=== PATIENT | female | born 1965 | race Caucasian/White ===

== ENCOUNTER 2018-09-03 12:09 | Outpatient (REF) | payer BC, SELFPAY ==
[2018-09-03 13:22] LABS: TSH (W/Ref FT4) 1.59 uIU/mL (0.358-3.74)
== END 2018-09-03 12:29 ==
LOC: NCHCN 12:09
PROVIDERS: PCP Nurse Practitioner Family; Visit Provider Nurse Practitioner Family
DX: E03.9 Hypothyroidism, unspecified (principal)
CPT/HCPCS: 84443

== ENCOUNTER 2019-09-05 09:28 | Outpatient (REF) | payer BC, SELFPAY ==
[2019-09-05 13:38] LABS: HCT 38.7 % (36.0-46.0); HGB 12.6 g/dL (12.0-15.5); Mean Corp. HGB Concentration 32.6 g/dL (32.0-36.0); Mean Corpuscular Hemoglobin 26.1 pg (27.0-33.0); Mean Corpuscular Volume 80.1 fL (80-95); Mean Platelet Volume 10.4 fL (8.0-11.0); Platelet Count 285 x1000/uL (130-400); RBC 4.83 m/cumm (4.00-5.20); RBC Distribution Width 14.6 % (11.7-14.6); White Blood Cell Count 4.96 k/cumm (4.4-10.8)
[2019-09-05 14:09] LABS: ALT 28 U/L (14-59); AST 17 U/L (15-37); Albumin 3.8 g/dL (3.4-5.0); Alkaline Phosphatase 90 U/L (46-116); Anion Gap 9.8 mmol/L (3-11); BUN 12 mg/dL (7-18); Bilirubin, Total 0.6 mg/dL (0.2-1.0); CO2 27.2 mmol/L (21.0-32.0); CREATININE 0.72 mg/dL (0.55-1.02); Calcium 9.3 mg/dL (8.5-10.1); Calculated LDL 150 mg/dL (<100); Chloride 105 mmol/L (98-107); Cholesterol 222 mg/dL (<200); Glucose 94 mg/dL (74-106); HDL Cholesterol 39 mg/dL (40-60); Potassium 4.2 mmol/L (3.5-5.1); Sodium 142 mmol/L (136-145); TSH (W/Ref FT4) 0.46 uIU/mL (0.36-3.74); Triglyceride 168 mg/dL (<150)
== END 2019-09-05 09:48 ==
LOC: NCHCN 09:28
PROVIDERS: PCP Nurse Practitioner Family; Visit Provider Nurse Practitioner Family
DX: Z00.00 Encounter for general adult medical examination without abnormal findings (principal); D64.9 Anemia, unspecified
CPT/HCPCS: 80053; 80061; 85027; 84443

== ENCOUNTER 2019-12-19 02:04 | Outpatient (CLI) | payer BC, SELFPAY ==
--- NOTE | 2019-12-19 09:50 | DI.MAMMO_ITS ---
EXAM: MG MAMMO SCREENING CLINICAL HISTORY: SCREENING, Z12.39 TECHNIQUE: Bilateral full field digital CC and MLO mammographic images were obtained with 3D tomosyn thesis and utilizing computer aided detection (CAD). COMPARISON: Available for comparison. FINDINGS: Masses/Architectural Distortion: None seen. Microcalcifications: No suspicious pleomorphic-type are seen. Skin Thickening/Nipple Retraction: None. IMPRESSION: 1. No significant interval change with no specific features of malignancy noted. 2. Unless there is more urgent need, screening mammography is recommended, as per [employer] guidelines. BI-RADS Category 1 - Negative Breast Density - Category B - Scattered areas of fibroglandular density A negative radiographic report should not delay biopsy if a dominant or clinically suspicious mass is present. Up to ten percent of cancers are not identified on mammography. A negative report may reinforce clinical impression. Adenosis and dense breasts may obscure an underlying neoplasm. False positive reports average 6 to 10%. Patient will receive a letter notifying them of these results.
== END 2019-12-19 02:24 ==
PROVIDERS: PCP Nurse Practitioner Family; Visit Provider Nurse Practitioner Family
DX: Z12.31 Encounter for screening mammogram for malignant neoplasm of breast (principal)
CPT/HCPCS: 77063; 77067

== ENCOUNTER 2020-09-07 14:32 | Outpatient (REF) | payer BC, SELFPAY ==
[2020-09-07 14:14] LABS: HCT 36.7 % (36.0-46.0); MCH 27.6 pg (27.0-33.0); MCHC 32.7 % (32.0-36.0); MCV 84.6 fL (80-95); MPV 10.3 fL (8.0-11.0); Platelet Count 208 10^3/uL (130-400); RBC 4.34 10^6/uL (3.93-5.22); RDW 13.3 % (11.7-14.6); RDW-SD 41.3 fL; WBC 5.28 10^3/uL (4.4-10.8)
[2020-09-07 14:34] LABS: ALT 86 U/L (14-59); AST 31 U/L (15-37); Albumin 3.6 g/dL (3.4-5.0); Alkaline Phosphatase 108 U/L (46-116); Anion Gap 8.1 mmol/L (3-11); BUN 16 mg/dL (7-18); Bilirubin, Total 0.4 mg/dL (0.2-1.0); CO2 26.9 mmol/L (21.0-32.0); CREATININE 0.9 mg/dL (0.55-1.02); Calcium 9.1 mg/dL (8.5-10.1); Calculated LDL 130 mg/dL (<100); Chloride 105 mmol/L (98-107); Cholesterol 209 mg/dL (<200); Glucose 106 mg/dL (74-106); HDL Cholesterol 50 mg/dL (40-60); Potassium 3.8 mmol/L (3.5-5.1); Sodium 140 mmol/L (136-145); TSH (W/Ref FT4) 0.87 uIU/mL (0.36-3.74); Total Protein 6.7 g/dL (6.4-8.2); Triglyceride 147 mg/dL (<150)
[2020-09-08 10:11] LABS: Hepatitis C Ab w Rflx HCV PCR Negative (Negative)
[2020-09-08 10:16] LABS: HIV-1/2 Ag & Ab Screen Negative (Negative)
== END 2020-09-07 14:33 | disposition home or self-care (01) ==
LOC: NCHCN 14:32
PROVIDERS: PCP Nurse Practitioner Family; Visit Provider Nurse Practitioner Family
DX: D64.9 Anemia, unspecified (principal); E03.9 Hypothyroidism, unspecified; Z11.59 Encounter for screening for other viral diseases; Z11.4 Encounter for screening for human immunodeficiency virus [HIV]
CPT/HCPCS: 80053; 80061; 85027; 86803; 87389; 84443

== ENCOUNTER 2021-02-08 02:16 | Outpatient (CLI) | payer BC, SELFPAY ==
--- NOTE | 2021-02-08 | DI.MAMMO_ITS ---
Exam(s) MAMMO SCREENING EXAM: MAMMO SCREENING CLINICAL HISTORY: SCREENING, Z12.39. TECHNIQUE: Bilateral full field digital CC and MLO mammographic images were obtained with 3D tomosyn thesis and utilizing computer aided detection (CAD). COMPARISON: Prior mammograms dating back to 2011, the most recent being November 2019. FINDINGS: There are no new spiculated masses nor malignant appearing microcalcification groups. There is no significant architectural distortion nor skin thickening-retraction. IMPRESSION: No radiographic evidence of malignancy. BI-RADS Category 1 - Negative Breast Density - Category B - Scattered areas of fibroglandular density Breast density Category C or D implies that the patient has dense breast tissue. Dense breast tissue can make it harder to find cancer on a mammogram. Dense breast tissue is also associated with an incr eased risk of breast cancer. This information about the result of the mammogram report was provided to the patient to raise their awareness. Use this report when you speak with the patient about their risks for breast cancer, which includes their family history. At that time, you may recommend additional screening tests (Ultrasoun d or MRI) as these tests may add significant information. A negative radiographic report should not delay biopsy if a dominant or clinically suspicious mass is present. Up to ten percent of cancers are not identified on mammography. A negative report may reinforce clinical impression. Adenosis and dense breasts may obscure an underlying neoplasm. False positive reports average 6 to 10%. Patient will receive a letter notifying them of these results.
== END 2021-02-08 02:36 ==
PROVIDERS: PCP Nurse Practitioner Family; Visit Provider Nurse Practitioner Family
DX: Z12.31 Encounter for screening mammogram for malignant neoplasm of breast (principal); R92.8 Other abnormal and inconclusive findings on diagnostic imaging of breast
CPT/HCPCS: 77063; 77067

== ENCOUNTER 2021-11-09 18:17 | Outpatient (REF) | payer BC, SELFPAY ==
[2021-11-09 16:13] LABS: Hemoglobin A1C 5.9 % (<5.7)
[2021-11-09 16:33] LABS: ALT 33 U/L (14-59); AST 20 U/L (15-37); Albumin 3.8 g/dL (3.4-5.0); Alkaline Phosphatase 100 U/L (46-116); Anion Gap 9.3 mmol/L (3-11); BUN 12 mg/dL (7-18); Bilirubin, Total 0.6 mg/dL (0.2-1.0); CO2 25.7 mmol/L (21.0-32.0); CREATININE 0.7 mg/dL (0.55-1.02); Calculated LDL 148 mg/dL (<100); Chloride 105 mmol/L (98-107); Cholesterol 223 mg/dL (<200); Glucose 94 mg/dL (74-106); HDL Cholesterol 46 mg/dL (40-60); Potassium 4.3 mmol/L (3.5-5.1); Sodium 140 mmol/L (136-145); TSH 0.72 uIU/mL (0.36-3.74); Total Protein 6.8 g/dL (6.4-8.2); Triglyceride 146 mg/dL (<150)
== END 2021-11-09 18:18 | disposition home or self-care (01) ==
LOC: NCHCN 18:17
PROVIDERS: PCP Nurse Practitioner Family; Visit Provider Physician Assistant
DX: E03.9 Hypothyroidism, unspecified (principal); R73.03 Prediabetes; E78.5 Hyperlipidemia, unspecified
CPT/HCPCS: 80053; 80061; 83036; 84443

== ENCOUNTER → 2022-02-14 | Outpatient (CLI) | payer BC, SELFPAY ==
--- NOTE | 2022-02-14 | DI.MAMMO_ITS ---
Exam(s) MAMMO SCREENING EXAM: MAMMO SCREENING CLINICAL HISTORY: SCREENING FOR BREAST CA, Z12.39 TECHNIQUE: Mammograms were interpreted according to the usual protocol including computer analysis w IROCKE CAD system, tomosynthesis and C-view imaging. COMPARISON: 2011 through 2020 FINDINGS: The breasts are composed of mainly fatty density , Breast Density category A. No suspicious masses or suspicious microcalcifications are seen. No skin thickening or abnormal axillary lymph nodes are seen. There has been no significant change from prior exams. IMPRESSION: BI-RADS Category 1, Negative mammogram Yearly screening mammography is recommended. Breast Density - Category A, fatty density. A negative radiographic report should not delay biopsy if a dominant or clinically suspicious mass is present. Up to ten percent of cancers are not identified on mammography. A negative report may reinforce clinical impression. Adenosis and dense breasts may obscure an underlying neoplasm. False positive reports average 6 to 10%. Patient will receive a letter notifying them of these results.
--- OUTSIDE RECORDS SUMMARY | 2022-02-14 00:02 | XMS_ITS | Encounter Summary ---
:1965 Author Organization [facility] Address [address] [place] [address] Care Team Providers Name Role Phone Elsa Dai APRN Primary Care Provider Encounter Details Date Type Department Care Team Description 10/27/2015 Hospital Encounter Mammography at [facility] Dr Joe Temporary Encounter for [facility] screening mammogram Drive for malignant [place] [id number] Social History Tobacco Use Types Packs/Day Years Used Date Never Assessed Sex Assigned at Date Recorded Not on file documented as of this encounter Medications at Time of Discharge Medication Sig Dispensed Refills Start Date End Date levothyroxine (SYNTHROID) 88 Take 88 mcg by 0 mcg Tablet mouth daily. ascorbic acid (VITAMIN C) Take 250 mg by 0 250 mg Tablet mouth daily. documented as of this encounter Plan of Treatment Not on filedocumented as of this encounter Procedures Procedure Name Priority Date/Time Associated Diagnosis Comme nts MAMMO SCREENING CAD Routine 10/27/2015 7:50 AM Encounter for R esults for this AND VALERIE BILATERAL EDT screening mammogram pr ocedure are in for malignant the results neoplasm of breast section. documented in this encounter Results Mammo Digital Bilateral Screening With CAD and Tomosynthesis (10/27/2015 7:50 AM EDT) Anatomical Region Laterality Modality Breast Bilateral Mammography Specimen (Source) Anatomical Location Collection Method / Collectio n Time Received Time / Laterality Volume Narrative 10/27/2015 10:04 AM EDT BILATERAL MAMMOGRAPHY REASON FOR EXAM: Screening TECHNIQUE: CC and MLO views were obtaine d of each breast using standard 2-D mammography as well as 3-D tomosynth esis. Computer aided detection was used. This is compared with prior images . FINDINGS: There are scattered areas of f ibroglandular density. There are no suspicious microcalcifications, mark s, or areas of distortion. The pattern is stable. CONCLUSION: No mammographic evidence of malignancy. RECOMMENDATION: The [employer] and The Society of Breast Imaging recommend annual screenin g beginning at age 40 for the general female population. Screening adriel uld continue as long as a woman is in good health and is expected to live 1 0 more years or longer. All women should be familiar with the known benefi ts, limitations, and potential harms linked to breast cancer screening. They should also know how their breasts normally look and feel and repor t any breast changes to a health care provider right away. Some women - b ecause of their family history, a genetic tendency, or certain other facto rs - should be screened with MRIs along with mammograms. (The number of wo men who fall into this category is very small.) The patient and health care provider should discuss the patient history and decide if earlier sc reening and breast MRI are appropriate. A result letter has been sent to this brandon esteves by [facility]. BIRADS CATEGORY 1: NEGATIVE Dr Quiles [facility] MAMMO ORDERABLES documented in this encounter Visit Diagnoses Diagnosis Encounter for screening mammogram for ma lignant neoplasm of breast Other screening mammogram documented in this encounter Care Teams Caser Relationship Specialty Start Date End Date Elsa Dai APRN PCP - General Family Medicine 09/16/15 12/11/[address] [place] [place] [address] documented as of this encounter
--- OUTSIDE RECORDS SUMMARY | 2022-02-14 00:02 | XMS_ITS | Encounter Summary ---
:1965 Author Organization [place] [address] Care Team Providers Name Role Phone Michael Murdock Primary Care Provider Reason for Visit Consultation (Routine) - Authorized Specialty Diagnoses / Procedures Referred By Contact Refer red To Contact Dermatology Diagnoses Nevus, non-neoplastic Michael Murdock PA [facility] Dermatology [facility] [address] [place], [place] [address] [place] [address] Fax: Referral ID Status Reason Start Expiration Visits Visits Date Date Requested Authorized [id number] Authorized Consult, 11/12/2021 11/12/2022 6 6 Test & Treat PCP Updated and/or Approved Encounter Details Date Type Department Care Team Description 02/07/2022 Office Visit Dermatology at [facility] Le ntigines; Road MD Multiple benign nevi; [address] [facility] Actinic keratosis; [place] [address] [address] Stafford angiodafne; [phone] [facility] Blue nevus; RD-DERMATOLOGY Skin tags, multiple acquired; [place], [place] [address] Neoplasm of uncertain behavior Social History Tobacco Use Types Packs/Day Years Used Date Never Smoker Alcohol Habits Answer Date Recorded How often do you have a drink containing alcohol? Not asked How many drinks containing alcohol do you have on a typical Not asked day when you are drinking? How often do you have six or more drinks on one occasion? No t asked Comment: 1-2/yr 12/03/2015 Sex Assigned at Date Recorded Not on file documented as of this encounter Progress Notes Jumana Pro MD - 02/07/2022 4:00 PM EDT Images from the original note were not included. DEPARTMENT OF DERMATOLOGY Medical Dermatology Clinic Provider: Jumana Pro MD Patient's preferred name Sachi Preferred contact method for results [x]Phone []myD-H [x]Letter Detailed phone message OK? Y Are there any other people with whom we may discuss your care? Past Medical History Date, location, treatment Melanoma N Dysplastic nevi N SCC N BCC N AKs N UV Exposure & Protection N Other relevant past medical history N Family History Details Melanoma N NMSC N Other relevant family history N Social History Occupation: Hobbies: Other: PRE-PROCEDURE SCREENING Details Allergy to lidocaine, epinephrine, Dermabond, chlorhexidine, or adhesives N Bleeding disorder or blood thinners N Pacemaker, defibrillator, deep brain stimulator, cochlear implant N History of Present Illness: Sachi Ramirez is a 56 y.o. Patient is new and self-referred to the clinic for a FSE with no specific concerns. Medications: Reviewed in eD-H Allergies: Reviewed in eD-H Skin Examination: Full skin examination: Patient asked to undress to their comfort level. Verbalized that the provider???s preference is that the patient remove all clothing and that the provider will not examine areas patient elects to keep covered. Patient elects to keep underwear on and have the following examined: s calp, hair, face, ears, neck, chest, axillae, abdomen, back, and upper and lower extremities. Genitalia and buttocks were not examined. Assessment/Plan #. Nevus r/o Atypia - on the left shoulder, there is a 4 mm brown papule with asymmetric pigment pattern and dark globules centrally.(Figure 1). - Recommended a skin biopsy to confirm/clarify the nature of the skin lesion. After discussion of potential risks (scarring, bleeding, infection) and recurrence, patient agreed to proceed. - Patient denies known allergies to lidocaine and epinephrine. Procedure: Skin shave biopsy Location: left shoulder Time of procedure: 4:22 PM Discussed indications for procedure and expectations including risks and benefits. Verbal consent obtained. Time out performed. Skin prepped with alcohol. Local anesthesia with 1% xylocaine, 1/100,000 epinephrine. A sample of the lesion was removed by shave technique to the level of the dermis and subm itted to Pathology. Hemostasis obtained (electrocautery). There were no complications; patient tolerated the procedure well. Wound dressed. Post- procedure expectations, wound care and activity restrictions reviewed. - Follow-up based on pathology results. #. Lentigines - Scattered light-brown, evenly pigmented, well-demarcated macules on sun-exposed areas of the trunk and extremities. - No worrisome pigmented lesions. Discussed benign nature of lesions and provided reassurance. Will continue to monitor. #. Seborrheic Keratoses - Stuck on, waxy papules on the trunk and extremities. - Discussed benign nature of lesions and provided reassurance. No treatment necessary at this time. #. Stafford Angiomas - Multiple bright red, well-demarcated papules on the trunk and extremities. - Discussed benign nature of lesions and provided reassurance. No treatment necessary at this time. #. Nevi -scattered brown macules on the back, chest,face and feet w/o concerning findings on dermoscopy. -pt reassured -advised the pt to monitor nevi monthly and if they are growing, changing color, or new lesions appear pt should call back to be seen before their next FBSE. #. Blue Nevus - 2 mm irregular blue black macule on the right episcopalian. - Discussed benign nature of lesion and provided reassurance. Will continue to monitor. #. Actinic Keratosis - Ill-defined gritty papule on the left malar cheek x 1 - Explained premalignant potential of these lesions. - Discussed treatment with cryotherapy. Patient elects to proceed with cryotherapy today. - Instructed patient to return to clinic for re-evaluation if lesion(s) does not resolve as expectedwith this treatment. Procedure: Destruction of lesion(s) with cryotherapy (LN2). Location(s): As noted above. Number: 1 Discussed procedure and expectations, including risks and benefits. Verbal consent obtained. Treatedwith LN2. There were no complications; Patient tolerated the procedure well. Post-procedure expectations and wound care reviewed. #. Skin Tags - Sessile, flesh-colored papules around the neck. - Discussed benign nature of lesions and provided reassurance. No treatment necessary at this time. Figure 1 Photo(s) taken and charted with patient's verbal consent. Other: ??? Sun protection discussed (protective clothing and SPF30+ broad-spectrum sunscreen) RTC: Pending pathology, otherwise 1 year for FSE. [x]Note routed to alumni secretary []Recall placed in scheduling system []Appointment scheduled at checkout Scribe attestation: Lillie Godfrey Deann has performed the documentation for this encounter in the presence of and acting as a scribe for Jumana Pro MD. I performed the above scribed service and agree with the accuracy of the documentation in this encounter. Reviewed and signed by: Jumana Pro MD Dermatology [facility] Patient seen and evaluated with staff clinical product manager: Juan C Siddiqui MD Dermatology [facility] Juan C Siddiqui MD - 02/07/2022 4:00 PM EDT I directly supervised Dr. Pro in the care of this patient. I saw and evaluated this patient with Dr. Pro. She presented the history and physical exam details to me, then we saw the patient together and I confirmed these findings. I agree with details as written. My physical examination confirms her findings. The assessment and plan were formulated in discussion with me at the time of visit and I agree with them as documented. Juan C Siddiqui MD FAAD Staff Physician Department of Dermatology documented in this encounter Plan of Treatment Not on filedocumented as of this encounter Procedures Procedure Name Priority Date/Time Associated Diagnosis Comme nts SPECIMEN TO Routine 02/07/2022 4:59 PM Neoplasm of Results f or this PATHOLOGY EDT uncertain behavior procedure are in the results section. SURGICAL PATHOLOGY Routine 02/07/2022 4:23 PM Res ults for this REPORT EDT procedure are i n the results section. documented in this encounter Results Specimen to Pathology (02/07/2022 4:59 PM EDT) Specimen Anatomical Collection Method Collection Time Receive d Time (Source) Location / / Volume Laterality AP Specimen 02/07/2022 4:59 PM 2 4:59 EDT PM EDT Narrative [facility] - 02/07/2022 4:59 PM EDT Specimen requisition ordered. ??Separate Pathology report to follow Juan C Siddiqui MD PATHOLOGY/CYTOLOGY ORDERABLE S Performing Organization Address City/State/[place] [address] Surgical Pathology Report (02/07/2022 4:23 PM EDT) Component Value Ref Test Analysis Performed At [facility] Range Method Time Signature Surgical [id number] ? Location: [facility] The signing pathologist has (i) examined the relevant preparation(s) for the [facility] specimen(s) and (ii) rendered or confirmed the diagnosis(es) . HOSPITAL LABORATORY . 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 of Pathology, [place], [place] SPECIMEN(S) SUBMITTED A - left shoulder, skin shave biopsy (1) CLINICAL INFORMATION Nevus R/O atypia-4 mm Brown papule with asymmetric pigment pattern and dark globules centrally. SPECIMEN PROCESSING A - Labeled/Fixative: Patient demographics, formalin. Quantity/Size: ??Single, 0.9 x 0.8 x 0.2 cm. Tissue Description: Shave of slightly domed barakat skin with a central 0.4 x 0.3 cm brown-dark brown raised lesion. Sections/Processing: Inked, quadrisected and entirely submitted in 2 cassettes as follows: ?A1: ??Tips ?A2: ??Body ??mnd Specimen (Source) Anatomical Collection Method Collection Time Re ceived Time Location / / Volume Laterality 02/07/2022 4:23 PM EDT Jumana Pro MD PATHOLOGY/CYTOLOGY ORDERABLE S Performing Organization Address City/State/[place] [address] documented in this encounter Visit Diagnoses Diagnosis Lentigines Other dyschromia Multiple benign nevi Benign neoplasm of skin, site unspecifie d Actinic keratosis Stafford angioma Nevus, non-neoplastic Blue nevus Skin tags, multiple acquired Neoplasm of uncertain behavior Neoplasm of uncertain behavior, site uns pecified documented in this encounter Care Teams Crown Pouncer Relationship Specialty Start Date End Date Michael Murdock PA PCP - General Internal Medicine 11/12/21 [address] [place] [address] documented as of this encounter
--- OUTSIDE RECORDS SUMMARY | 2022-02-14 00:02 | XMS_ITS | Encounter Summary ---
:1965 Author Organization [facility] [place] [address] Care Team Providers Name Role Phone Elsa Dai JUAN RAMON Primary Care Provider Reason for Visit Reason Comments Establish Care Contraception Encounter Details Date Type Department Care Team Description 02/08/2016 Office Visit Obstetrics and Irais Valles, Oswald sinha; Gynecology at [facility] SALES NEGOTIATOR General counselling and advice on contra ception [facility] [address] [place] [facility] [address] [place] [address] [phone] (Wo rk) Social History Tobacco Use Types Packs/Day Years [...] on file documented as of this encounter Last Filed Vital Signs Vital Sign Reading Time Taken Comments Blood Pressure 120/70 02/08/2016 7:08 AM EDT Pulse 72 02/08/2016 7:08 AM EDT Temperature 36.7 ??C (98 ??F) 02/08/2016 7:08 AM EDT Respiratory Rate - - Oxygen Saturation 99% 02/08/2016 7:08 AM EDT Inhaled Oxygen Concentration - - Weight 76.2 kg (168 lb) 02/08/2016 7:08 AM EDT Height 153.7 cm (5' 0.5) 02/08/2016 7:08 AM EDT Body Mass Index 32.27 02/08/2016 7:08 AM EDT documented in this encounter Progress Notes Irais Valles, SALES NEGOTIATOR - 02/08/2016 7:32 AM EDT Patient Active Problem List Diagnosis Code ??? hypothyroid N95.1 HPI: Sachi is a very pleasant 50 year old P1 who comes to clinic today to discuss Mirena IUD. She is wondering if she should have replaced or not. It was inserted, she thinks in [id number], but is not sure. She is now in a new relationship and wants to avoid . She had SEALS ENGRAVER exam in Aug that included a pap smear and TSH evaluation with her PCP. EXTRUDING MACHINE OPERATOR HX: ?? Menarche age 12, lifelong regular menses until Mirena was inserted ?? mirena inserted for heavy flow ?? Last pap Aug 2015, no hx of abnormals ?? Sexually active ?? Having vasomotor signs and symptoms ?? 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 C/S delivery of son who is now 21, uncomplicated Past Surgical History Procedure Laterality Date ??? Breast reduction surgery Bilateral 2009 ??? Pro colonoscopy, diagnostic N/A 12/03/2015 COLONOSCOPY, DIAGNOSTIC performed by Rafita Hogan MD at [facility] END[facility]COPY Family History Problem Relation Age of Onset ??? Lymphoma Mother ??? Diabetes Father ??? Heart Disease Father ??? Diabetes Paternal Grandmother ??? Breast Cancer Neg Hx SOCIAL : Nonsmoker, [place] [employer] [place] [employer]. Son lives with her parts specialist when home from college. Family History Problem Relation Age of Onset ??? Lymphoma Mother ??? Diabetes Father ??? Heart Disease Father ??? Diabetes Paternal Grandmother ??? Breast Cancer Neg Hx Allergies Allergen Reactions ??? Cis Free Text Allergy medicine for labor?. CIS - had to cut dose in half. ??? Cis Free Text Allergy spinal/epidural. CIS - bad reaction was given general anesth. Current Outpatient Prescriptions on File Prior to Visit Medication Sig Dispense Refill ??? levothyroxine (SYNTHROID) 88 mcg Tablet Take 88 mcg by mouth daily. ??? ascorbic acid (VITAMIN C) 250 mg Tablet Take 250 mg by mouth daily. No current facility-administered medications on file prior to visit. O: . Vitals: 02/08/16 0708 BP: 120/70 Pulse: 72 Temp: 36.7 ??C (98 ??F) TempSrc: Oral SpO2: 99% Weight: 76.2 kg (168 lb) Height: 153.7 cm (5' 0.5) A/P I had a 20 minute visit with Sachi all in face to face discussion. She would not like to have Mirena reinserted if possible. She is unsure of dating of Mirena but thinks it was inserted in 2010 orso. Discussed chances for at 50.5 years is <1%. Discussed that vasomotor s/s that she has been having for a couple of years are indicative of perimenopause. At end of discussion a decisionwas made to proceed with FSH evaluation to assess menopausal status. Discussed that in [place] Mirena isFDA approved for 5 years. In [place] for 7, she could elect to keep current Mirena in place for 7 years knowing that its effectiveness for contraception is listed as 5 years in the [place]. She is going to call her SEALS ENGRAVER office in [facility] to find out when Mirena was inserted and then let me know. To 3L forFSH level. documented in this encounter Plan of Treatment Not on filedocumented as of this encounter Procedures Procedure Name Priority Date/Time Associated Diagnosis Comme nts FOLLICLE STIMULATING Routine 02/08/2016 7:34 AM Perimenopause Results for this HORMONE EDT procedure are i n the results section. documented in this encounter Results Follicle Stimulating Hormone (02/08/2016 7:34 AM EDT) athologist Signature FSH 96.7 mlU/ML [facility] Comment: Reference Ranges: Females: Follicular: ? 3.5-12.5 mIU/mL Ovulation: ?4.7-21.5 mIU/mL Luteal: ? 1.7-7.7 mIU/mL Postmenopausal: 25.8-134.8 mIU/mL Specimen Anatomical Collection Method Collection Time Receive d Time (Source) Location / / Volume Laterality Blood specimen 02/08/2016 7:34 AM 016 7:41 (specimen) EDT AM EDT Resulting Agency Comment Spec In Lab Ros Medina MD CHEMISTRY ORDERABLES Performing Organization Address City/State/Z[place] [address] documented in this encounter Visit Diagnoses Diagnosis Perimenopause Symptomatic menopausal or female climact binta states General counselling and advice on contra ception Other general counseling and advice for contraceptive management documented in this encounter Care Teams Gym Manager Relationship Specialty Start Date End Date Elsa Dai APRN PCP - General Family Medicine 09/16/15 12/11/16 [address] [place] [address] documented as of this encounter
--- OUTSIDE RECORDS SUMMARY | 2022-02-14 00:02 | XMS_ITS | Encounter Summary ---
:1965 [place] [address] Care Team Providers Name Role Phone Natacha Wu Juan David DELATORRE Primary Care Provider Encounter Details Date Type Department Care Team Description 12/12/2016 Laboratory Appointment Lab [address] [place] [address] Social History Tobacco Use Types Packs/Day Years [...] on file documented as of this encounter Plan of Treatment Not on filedocumented as of this encounter Procedures Procedure Name Priority Date/Time Associated Diagnosis Comme nts TSH Routine 12/12/2016 7:58 AM Results f or this EDT procedure are i n the results section. LIPID PANEL (REFLEX Routine 12/12/2016 7:58 AM Re sults for this DIRECT LDL) EDT procedure are i n the results section. BASIC METABOLIC Routine 12/12/2016 7:58 AM Result s for this PANEL (NON-FASTING) EDT procedur e are in the results section. documented in this encounter Results Lipid Panel (12/12/2016 7:58 AM EDT) [facility] Method Time Signature Chol, Total 219 <=239 TESS mg/dL [facility] Triglycerides 114 <=199 TESS mg/dL [facility] HDL 50 >=40 TESS mg/dL [facility] LDL Cholesterol 146 <=190 TESS mg/dL [facility] Chol/HDL Ratio 4.4 ratio [facility] Lipid See Note TESS Interpretation [facility] Comment: Lipid management should be guided by a p atient? s ASCVD risk, goals and preferences. ACC/AHA Guidelines recommend high intens ity statin if clinical ASCVD or LDL greater than or equal to 190 mg/dL. [email or web address] Adults aged 40-75 with LDL 70-189 mg/dL should have their 10 year ASCVD risk estimated with the ACC/AHA ASCVD risk es timator http://tools.acc.org/WWBRY-Ygsk-Rvtkbiwo r/ Statin should be discussed if risk great er than or equal to 7.5% in non-diabetics. With diabetes, moderate i ntensity statin is recommended if risk less than 7.5%, high intensity if risk g reater than or equal to 7.5%. Annual lipid monitoring on statins is no t necessary. Evaluate secondary causes of Triglycerid es greater than 500 mg/dL or LDL greater than 190 mg/dL: See table 6 of A CC/AHA Guideline. Lifestyle modification is a critical com ponent of ASCVD risk reduction. Specimen Anatomical Collection Method Collection Time Receive d Time (Source) Location / / Volume Laterality Blood specimen Venous Draw / 12/12/2016 7:58 AM 2016 8:06 (specimen) Unknown EDT AM EDT Resulting Agency Comment Spec In Lab Temporary Laboratory CHEMISTRY ORDERABLES Performing Organization Address City/State/ZIP [place] [address] TSH (12/12/2016 7:58 AM EDT) athologist Signature TSH 1.46 0.27 - 4.20 [facility] m[facility] Specimen Anatomical Collection Method Collection Time Receive d Time (Source) Location / / Volume Laterality Blood specimen Venous Draw / 12/12/2016 7:58 AM 2016 8:06 (specimen) Unknown EDT AM EDT Resulting Agency Comment Spec In Lab Dr Quiles Laboratory CHEMISTRY ORDERABLES Performing Organization Address City/State/ZIP [place] [address] Basic Metabolic Panel (non-fasting) (12/12/2016 7:58 AM EDT) athologist Signature Glucose Lvl 101 65 - 199 [facility] mg/dL [facility] Comment: Diabetes: >=200 mg/dL plus symp toms BUN 14 8 - 18 mg/dL [facility] Creatinine 0.93 0.70 - 1.20 mg/dL [facility] Comment: Please note that the pediatric reference intervals supplied above were not validated at [facility]. Results from pediatri c patients should be interpreted in conjunction to the patient's age, height and muscle mass. Sodium 139 135 - 145 mmol/L [facility] Potassium 4.0 3.5 - 5.0 mmol/L [facility] Comment: Please note: ??Patients with WBC >100,00 0 may have falsely elevated Potassium levels. ??For accurate Potassium quantif ication in these patients send serum separator tube (gold top) for subsequent determinations. ??Contact the Clinical Chemistry Laboratory if there are any qu estions. Chloride 102 98 - 107 mmol/L [facility] CO2 25 22 - 31 mmol/L [facility] Anion Gap 12 5 - 15 mmol/L [facility] Calcium 9.4 8.5 - 10.5 mg/dL [facility] Estimated GFR >60 >=60 [facility] Comment: This estimated GFR (eGFR) value was calc ulated using the MDRD equation which has been validated on patients between t he ages of 18 and 70. The MDRD should not be used to assess kidney function in patients < 18 years of age or in patients with extremes of body mass, or in patients with acute kidney failure. This value should be multiplied by 1.2 f or patients. For further information please copy and past e the following links into your internet browser. http://Toothpick/nkdep http://Toothpick/DHMCnkf Specimen Anatomical Collection Method Collection Time Receive d Time (Source) Location / / Volume Laterality Blood specimen Venous Draw / 12/12/2016 7:58 AM 2016 8:06 (specimen) Unknown EDT AM EDT Resulting Agency Comment Spec In Lab Dr Temporary Laboratory CHEMISTRY ORDERABLES Performing Organization Address City/State/[place] [address] documented in this encounter Visit Diagnoses Not on filedocumented in this encounter Care Teams Battery Plate Remover Relationship Specialty Start Date End Date Natacha Wu APRN PCP - General Family Medicine 12/12/16 02/27/19 documented as of this encounter
--- OUTSIDE RECORDS SUMMARY | 2022-02-14 00:02 | XMS_ITS | Encounter Summary ---
:1965 Author Organization [facility] [place] [address] Care Team Providers Name Role Phone Mirella Lawrence APRN Primary Care Provider [phone] Encounter Details Date Type Department Care Team Description 07/02/2013 Hospital Encounter Radiology Library at [facility] Rg, [place] [address] Social History Tobacco Use Types Packs/Day Years Used Date Never Assessed Sex Assigned at Date Recorded Not on file documented as of this encounter Plan of Treatment Not on filedocumented as of this encounter Procedures Procedure Name Priority Date/Time Associated Diagnosis Comme nts FILM LIBRARY Routine 07/02/2013 12:00 AM Pain Results for this STORAGE ONLY MAMMO EST procedure are in the results section. documented in this encounter Results Film Library- Storage only Mammo (07/02/2013 12:00 AM EST) Specimen (Source) Anatomical Location Collection Method / Collectio n Time Received Time / Laterality Volume Narrative [facility] - 09/25/2015 6:14 AM EST See PACS for result report. Dr Kb Diaz IMG FILM LIBRARY ORDERABLES Performing Organization Address City/State/ZIP Code Phon e Number [place], [place] documented in this encounter Visit Diagnoses Diagnosis Pain Generalized pain documented in this encounter Care Teams Commercial Project Manager Relationship Specialty Start Date End Date Mirella Lawrence APRN PCP - General 06/22/10 09/14/15 [address] [place] [address] documented as of this encounter
--- OUTSIDE RECORDS SUMMARY | 2022-02-14 00:02 | XMS_ITS | Clinical Summary ---
:1965 Author Organization [facility] [address] Care Team Providers Name Role Phone Michael Murdock Primary Care Provider Allergies Active Allergy Reactions Severity Noted Date Comments Cis Free Text Allergy medici ne for labor?. CIS - had to cut do se in half. Cis Free Text Allergy spinal /epidural. CIS - bad reaction was gi [facility]. Medications Medication Sig Dispensed Refills Start Date End Date Status levothyroxine Take 88 mcg by 0 A ctive (SYNTHROID) 88 mcg mouth daily. Tablet ascorbic acid (VITAMIN Take 250 mg by 0 Active C) 250 mg Tablet mouth daily. Active Problems Problem Noted Date hypothyroid 02/08/2016 Encounters Date Type Specialty Care Team Description 02/07/2022 Office Visit Dermatology Jumana Pro MD Lentigin es; Multiple benign nevi; Actinic keratos is; Stafford angioma; Blue nevus; Skin tags, mult iple acquired; [facility] of [facility] ertain behavior from Last 3 Months Family History Medical History Relation Comments Diabetes Father Heart Disease Father Lymphoma Mother Diabetes Paternal Grandmother Breast Cancer Neg Hx Relation Status Comments Father Mother Paternal Grandmother Social History Tobacco Use Types Packs/Day Years [...] Assigned at Date Recorded Not on file Last Filed Vital Signs Vital Sign Reading Time Taken Comments Blood Pressure 126/77 06/01/2016 7:20 AM EDT Pulse 76 06/01/2016 7:20 AM EDT Temperature 36.6 ??C (97.8 ??F) 06/01/2016 7:20 AM EDT Respiratory Rate 20 06/01/2016 7:20 AM EDT Oxygen Saturation 94% 06/01/2016 7:20 AM EDT Inhaled Oxygen Concentration - - Weight 74.8 kg (165 lb) 06/01/2016 7:20 AM EDT Height 153.7 cm (5' 0.5) 06/01/2016 7:20 AM EDT Body Mass Index 31.69 06/01/2016 7:20 AM EDT Plan of Treatment Health Maintenance Due Date Last Done Comments Covid-19 Vaccine (#1) 1970 HIV screen 1983 Hepatitis C Screening 1983 Tdap adult 1984 Tetanus vaccine 1984 HPV test 1995 PAP Smear 1995 Breast Cancer Share Decision Needed 2005 Zoster vaccine (1 of 2) 2015 Breast Cancer screening 10/26/2017 10/27/2015 Advance Directive 2020 Influenza (Flu) vaccine (1 of 1 - 03/31/2022 Influenza standard series) Colonoscopy 12/02/2025 12/03/2015, 12/03/2015 Procedures Procedure Name Priority Date/Time Associated Diagnosis Comme nts SPECIMEN TO Routine 02/07/2022 4:59 PM Neoplasm of Results f or this PATHOLOGY EDT uncertain behavior procedure are in the results section. SURGICAL PATHOLOGY Routine 02/07/2022 4:23 PM Res ults for this REPORT EDT procedure are i n the results section. from Last 3 Months Results Specimen to Pathology (02/07/2022 4:59 PM EDT) Specimen Anatomical Collection Method Collection Time Receive d Time (Source) Location / / Volume Laterality AP Specimen 02/07/2022 4:59 PM 4:59 EDT PM EDT Narrative [facility] - 02/07/2022 4:59 PM EDT Specimen requisition ordered. ??Separate Pathology report to follow Juan C Siddiqui MD PATHOLOGY/CYTOLOGY ORDERABLE S Performing Organization Address City/State/[place] [address] Surgical Pathology Report (02/07/2022 4:23 PM EDT) Component Value Ref Test Analysis Performed At [facility] Range Method Time Signature Surgical [id number] ? Location: [facility] Report The signing pathologist has (i) examined the relevant preparation(s) for the [facility] specimen(s) and (ii) rendered or confirmed the diagnosis(es) . HOSPITAL LABORATORY . 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 of Pathology, [place], [place] SPECIMEN(S) SUBMITTED A - left shoulder, [...] MD PATHOLOGY/CYTOLOGY ORDERABLE S Performing Organization Address City/[facility]/[place] [address] from Last 3 Months Insurance Payer Benefit Plan / Subscriber ID Effective Dates Phone Addre ss Type Group [employer] [place] [id number] 2021-Present [address] [place] [address] (Work) Care Teams Sandwich Wrapper Relationship Specialty Start Date End Date Michael Murdock PA PCP - General Internal Medicine 11/12/21 [address] [place], [place] [id number]
--- OUTSIDE RECORDS SUMMARY | 2022-02-14 00:02 | XMS_ITS | Encounter Summary ---
:1965 Author Organization [facility] [place] [address] Care Team Providers Name Role Phone Mirella Lawrence APRN Primary Care Provider [phone] Encounter Details Date Type Department Care Team Description 05/31/2011 Hospital Encounter Radiology Library at [facility] [place] [address] Social History Tobacco Use Types Packs/Day Years Used Date Never Assessed Sex Assigned at Date Recorded Not on file documented as of this encounter Plan of Treatment Not on filedocumented as of this encounter Procedures Procedure Name Priority Date/Time Associated Diagnosis Comme nts FILM LIBRARY Routine 05/31/2011 12:00 AM Pain Results for this STORAGE ONLY MAMMO EDT procedure are in the results section. documented in this encounter Results Film Library- Storage only Mammo (05/31/2011 12:00 AM EDT) Specimen (Source) Anatomical Location Collection Method / Collectio n Time Received Time / Laterality Volume Narrative [facility] - 09/25/2015 6:25 AM EST See PACS for result report. Dr Kb Diaz IMG FILM LIBRARY ORDERABLES Performing Organization Address City/State/ZIP Code Phon e Number [place], [place] documented in this encounter Visit Diagnoses Diagnosis Pain Generalized pain documented in this encounter Care Teams Group Work Program Aide Relationship Specialty Start Date End Date Mirella Lawrence APRN PCP - General 06/22/10 09/14/15 [address] [place] [address] documented as of this encounter
--- OUTSIDE RECORDS SUMMARY | 2022-02-14 00:02 | XMS_ITS | Encounter Summary ---
:1965 Author Organization [facility] [place] [address] Care Team Providers Name Role Phone Elsa Dai JUAN RAMON Primary Care Provider Reason for Visit Reason Comments Follow-up Encounter Details Date Type Department Care Team Description 06/01/2016 Office Visit Obstetrics and Irais Valles Encount er for IUD Gynecology at [facility] CARBONATION TESTER removal [facility] [address] [place], [place] VASCULAR SURGERY [address] [place] [address] [phone] (Wo rk) Social History Tobacco Use Types [...] Mass Index 31.69 06/01/2016 7:20 AM EDT documented in this encounter Progress Notes Miryam Valleszachristin Chacko, CARBONATION TESTER - 06/01/2016 7:30 AM EDT Patient Active Problem List Diagnosis Code ??? hypothyroid N95.1 HPI: Sachi is a very pleasant 50 year old who comes to clinic for Mirena IUD removal. I saw her in January for question of reinsertion of Mirena as her Mirena was now 5 years old. Her FSH was 96 which michelle menopausal value. CERTIFIED HISTOLOGIC TECHNICIAN HX: ?? Menarche age 12, lifelong regular menses until Mirena was inserted ?? mirena inserted for heavy flow ?? Last pap Aug 2015, no hx of abnormals ?? Sexually active ?? Having vasomotor signs and symptoms ?? 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 C/S delivery of son who is now 21, uncomplicated Allergies Allergen Reactions ??? Cis Free Text [...] medications on file prior to visit. O: Vitals: 06/01/16 0720 BP: 126/77 Pulse: 76 Resp: 20 Temp: 36.6 ??C (97.8 ??F) TempSrc: Oral SpO2: 94% Weight: 74.8 kg (165 lb) Height: 153.7 cm (5' 0.5) CAMPGROUND HAND: external genitalia architecturally normal, vagina moist, cervix smooth, IUD string grasped withforceps and removed easily and was intact. A/P IUD removal 50 year old female with FSH of 96. Discussed she may have spotting after removal. Discussed again that FSH of 96 is menopausal value, to call with further vaginal bleeding. ?? documented in this encounter Plan of Treatment Not on filedocumented as of this encounter Visit Diagnoses Diagnosis Encounter for IUD removal Encounter for removal of intrauterine co ntraceptive device documented in this encounter Care Teams Tire Man Relationship Specialty Start Date End Date Elsa Dai APRN PCP - General Family Medicine 09/16/15 12/11/16 [address] [place] [address] documented as of this encounter
--- OUTSIDE RECORDS SUMMARY | 2022-02-14 00:02 | XMS_ITS | Encounter Summary ---
:1965 Author Organization [facility] [place] [address] Care Team Providers Name Role Phone Michael Murdock Primary Care Provider Reason for Referral Consultation (Routine) - Authorized Specialty Diagnoses / Procedures Referred By Contact Refer red To Contact Dermatology Diagnoses Nevus, non-neoplastic Michael Murdock PA Psychiatric Dermatology [address] [place], [place] [address] [place] [phone] Fax: Referral ID Status Reason Start Expiration Visits Visits Date Date Requested Authorized [id number] Authorized Consult, 11/12/2021 11/12/2022 6 6 Test & Treat PCP Updated and/or Approved Encounter Details Date Type Department Care Team Description 11/12/2021 Transcribe Orders eDH Incoming Evangelist Murdock, Referrals ARASH Rodriguez non-neoplastic [phone] [address] [place] [address] Social History Tobacco Use Types Packs/Day Years [...] as of this encounter Plan of Treatment Scheduled Referrals Name Type Priority Associated Order Schedule Diagnoses Referral to Outpatient Referral Routine Nevus, Ordered: Dermatology non-neoplastic 11/12/2021 documented as of this encounter Visit Diagnoses Diagnosis Nevus, non-neoplastic documented in this encounter Care Teams Driller Operator Relationship Specialty Start Date End Date Michael Murdock PA PCP - General Internal Medicine 11/12/21 [address] [place] [address] documented as of this encounter
--- OUTSIDE RECORDS SUMMARY | 2022-02-14 00:02 | XMS_ITS | Encounter Summary ---
:1965 [place] [address] Care Team Providers Name Role Phone Unavailable Primary Care Provider Unavailable Encounter Details Date Type Department Care Team Description 07/02/2009 Hospital Encounter Radiology Library at [place] Rg, [place] [address] Social History Tobacco Use Types Packs/Day Years Used Date Never Assessed Sex Assigned at Date Recorded Not on file documented as of this encounter Plan of Treatment Not on filedocumented as of this encounter Procedures Procedure Name Priority Date/Time Associated Diagnosis Comme nts FILM LIBRARY Routine 07/02/2009 12:00 AM Pain Results for this STORAGE ONLY MAMMO EST procedure are in the results section. documented in this encounter Results Film Library- Storage only Mammo (07/02/2009 12:00 AM EST) Specimen (Source) Anatomical Location Collection Method / Collectio n Time Received Time / Laterality Volume Narrative [facility] - 09/25/2015 6:30 AM EST See PACS for result report. Dr Kb Diaz IMG FILM LIBRARY ORDERABLES Performing Organization Address City/State/ZIP Code Phon e Number [place], [place] documented in this encounter Visit Diagnoses Diagnosis Pain Generalized pain documented in this encounter
--- OUTSIDE RECORDS SUMMARY | 2022-02-14 00:02 | XMS_ITS | Encounter Summary ---
:1965 Author Organization [facility] [place] [address] Care Team Providers Name Role Phone Elsa Dai APRN Primary Care Provider Encounter Details Date Type Department Care Team Description 12/14/2015 Transcribe Orders Laboratory Natacha Wu APRN [facility] [place], [place] [address] [facility] [address] [place] [address] [phone] (Wo rk) Social History Tobacco Use Types Packs/Day Years Used Date Never Smoker Alcohol Habits Answer Date Recorded How often do you have a drink containing alcohol? Not asked How many drinks containing alcohol do you have on a typical Not asked day when you are drinking? How often do you have six or more drinks on one occasion? No t asked Comment: 1-2/12/03/2015 Sex Assigned at Date Recorded Not on file documented as of this encounter Plan of Treatment Not on filedocumented as of this encounter Visit Diagnoses Not on filedocumented in this encounter Care Teams Manager Marketing Relationship Specialty Start Date End Date Elsa Dai APRN PCP - General Family Medicine 09/16/15 12/11/16 [place] [address] documented as of this encounter
--- OUTSIDE RECORDS SUMMARY | 2022-02-14 00:02 | XMS_ITS | Clinical Summary ---
:1965 Author Organization [facility] Address [address] [place] [address] Care Team Providers Name Role Phone Natacha Wu APRN Primary Care Provider Allergies Active Allergy Reactions Severity Noted Date Comments Other - See Comments Anaphylaxis 08/17/2010 Pre-ter m labor medication Medications Medication Sig Dispensed Refills Start Date End Date Status IBUPROFEN ORAL Take by mouth as needed. 0 08/17/2010 Active Active Problems No known active problems Surgical History Surgery Date Site/Laterality Comments BREAST SURGERY 01/05/10 SECTION 06/23/93 Medical History Medical History Date Comments Atypical nevi digital photos Family History Medical History Relation Name Comments Diabetes Father Hearing Loss Father Heart Disease Father Hypertension Father Vision Loss Father Cancer Mother non-hodgkins B-c ell lymphoma, uterian or cervical Hypertension Mother Vision Loss Mother Diabetes Paternal Aunt Heart Disease Paternal Aunt Relation Name Status Comments Father Alive Mother Paternal Aunt Alive Sister Alive Sister Alive Sister Alive Social History Tobacco Use Types Packs/Day Years Used Date Never Smoker Alcohol Use Standard Drinks/Week Comments No 0 (1 standard drink = 0.6 oz pure alcoho l) Sex Assigned at Date Recorded Not on file Plan of Treatment Not on file Care Teams Nursing Services Manager Relationship Specialty Start Date End Date Natacha Wu APRN PCP - General 01/10/[address] [place] [address]
--- OUTSIDE RECORDS SUMMARY | 2022-02-14 00:02 | XMS_ITS | Encounter Summary ---
:1965 Author Organization [facility] [place] [address] Care Team Providers Name Role Phone Elsa Dai APRN Primary Care Provider Reason for Visit Auth/Cert Specialty Diagnoses / Procedures Referred By Contact Refer red To Contact Diagnoses Encounter for screening for malignant neoplasm of colon Screening Procedures PRO COLONOSCOPY, DIAGNOSTIC COLONOSCOPY, DIAGNOSTIC Referral ID Status Reason Start Date Expiration Date Visits Requ ested Visits Authorized [id number] 1 1 Encounter Details Date Type Department Care Team Description 12/03/2015 Hospital Encounter Gastroenterology at [facility] Rafita Hogan, [facility] [place] [address] [facility] [phone] [facility] [place], [place] [address] Social History Tobacco Use Types Packs/Day Years [...] Sign Reading Time Taken Comments Blood Pressure 119/75 12/03/2015 11:11 AM EDT Pulse 60 12/03/2015 11:11 AM EDT Temperature - - Respiratory Rate 16 12/03/2015 11:11 AM EDT Oxygen Saturation 95% 12/03/2015 11:11 AM EDT Inhaled Oxygen Concentration - - Weight - - Height - - Body Mass Index - - documented in this encounter Discharge Instructions AttachmentsThe following attachments cannot be sent through Care Everywhere. COLONOSCOPY : POST-OP (KYRGYZ)documented in this encounter Medications at Time of Discharge Medication Sig Dispensed Refills Start Date End Date levothyroxine (SYNTHROID) 88 Take 88 mcg by 0 mcg Tablet mouth daily. ascorbic acid (VITAMIN C) Take 250 mg by 0 250 mg Tablet mouth daily. documented as of this encounter Plan of Treatment Not on filedocumented as of this encounter Procedures Procedure Name Priority Date/Time Associated Comments Diagnosis SURGICAL PATHOLOGY Routine 12/03/2015 11:13 Resul ts for this REPORT AM EDT procedure are i n the results section. SPECIMEN TO PATHOLOGY Routine 12/03/2015 11:13 Re sults for this AM EDT procedure are i n the results section. COLONOSCOPY, 12/03/2015 10:26 Screening DIAGNOSTIC AM EDT COLONOSCOPY Routine 12/03/2015 10:03 Results for this AM EDT procedure are i n the results section. documented in this encounter Results Surgical Pathology Report (12/03/2015 11:13 AM EDT) [facility] Method Time Signature Surgical [id number] ? Location: ; [facility]; [facility] Report The signing pathologist has (i) examined the relevant preparation(s) for the MEMORIAL specimen(s) and (ii) rendered or confirmed the diagnosis(es) . HOSPITAL LABORATORY . ?Surgic al Pathology DIAGNOSIS Rectum, polypectomy: Hyperplastic polyp. 12/03/15 AAY 12/04/15 Verified by: ? Jose R Stewart MD ?Pathologist ?(Electronic Signature ) The attending pathologist whose signature appears on this re port has reviewed all diagnostic slides and has edited the gross and/ or microscopic portion of the report in brandon dering the final pathologic diagnosis. CLINICAL INFORMATION Specimen Submitted: A - Rectal polyps Clinical History: 50-year-old female with four rectal polyps; rule out TAS Clinical Diagnosis: Same SPECIMEN PROCESSING A - Labeled/Fixative: Rectal polyps, formalin. Quantity/Size: One, 0.4 cm. Tissue Description: ??Soft, barakat tissue . Sections/Processing: (T1) ??aml Specimen (Source) Anatomical Collection Method Collection Time Re ceived Time Location / / Volume Laterality 12/03/2015 11:13 AM EDT Rafita Hogan MD PATHOLOGY/CYTOLOGY ORDERABLE S Performing Organization Address City/[facility]/[place] [address] Specimen to Pathology (surgical or derm) (12/03/2015 11:13 AM EDT) Specimen Anatomical Collection Method Collection Time Receive d Time (Source) Location / / Volume Laterality AP Specimen 12/03/2015 11:13 12/03/2015 AM EDT 11:13 AM EDT Narrative [facility] - 12/03/2015 11:13 AM EDT Specimen requisition ordered. ??Separate Pathology report to follow Rafita Hogan MD PATHOLOGY/CYTOLOGY ORDERABLE S Performing Organization Address City/[facility]/[place] [address] COLONOSCOPY (12/03/2015 10:03 AM EDT) [facility] gist Method Time Signature COLONOSCOPY [facility] Endoscopy Patient Name: Sachi Ramirez ? Procedure Date: 12/03/2015 10:03 AM ? Date of : 1965 ? Age: 50 ? Order #: [id number] ? Procedure: ? Colonoscopy Indications: ? Screening for colorectal malignant ? neoplasm Providers: ? Rafita Hogan MD, Gabriel Ruby ? LAZARO Pelletier, Rhina Siu MD: ?Elsa Dai MD Medicines: ? Fentanyl 150 micrograms IV, Midazo grant ? 3 mg IV Complications: ? No immediate complications. Estimate d ? blood loss: Minimal. Procedure: ? Pre-Anesthesia Assessment: ? - Prior to the procedure, a H istory ? and Physical was performed, a nd ? patient medications, allergie s and ? sensitivities were reviewed. The ? patient's tolerance of previo us ? anesthesia was reviewed. ? - The risks and benefits of t he ? procedure and the sedation op tions ? and risks were discussed with the ? patient. All questions were a nswered ? and informed consent was obta ined. ? - Patient identification and proposed ? procedure were verified prior to the ? procedure by the physician francheska mcwilliams the ? nurse. The procedure was veri fied in ? the endoscopy suite. ? - ASA Grade Assessment: II - A ? patient with mild systemic di sease. ? - The anesthesia plan was to use ? moderate sedation/analgesia ? (conscious sedation). ? The procedure, indications, b enefits, ? risks and alternatives were e xplained ? to the patient. Specifically ? discussed were potential ? complications including, but not ? limited to, bleeding, perfora tion, ? infection, missing a cancer, and ? adverse medication reactions. The ? patient was placed in the lef t ? lateral decubitus position, a nd a ? digital rectal exam was perfo rmed. ? The Colonoscope was inserted in the ? anus and under direct visuali zation, ? advanced to the terminal ileu m, with ? identification of the appendi ceal ? orifice and IC valve. Careful ? inspection was made as the ? colonoscope was withdrawn. Th e ? colonoscopy was performed wit hout ? difficulty. The patient fred ated the ? procedure fairly well. ? Findings: ? The terminal ileum appeared normal. ? Four polyps were found in the rectum. The polyps were ? 2 to 4 mm in size. These polyps were removed with a ? cold biopsy forceps. Resection and retrieval were ? complete. ? The retroflexed view of the distal rectum and anal ? verge was normal and showed no anal or rectal ? abnormalities. ? Impression: ?- The examined portion of the ileu m ? was normal. ? - Four 2 to 4 mm polyps in th e ? rectum. Resected and retrieve d. ? - Internal hemorrhoids. Recommendation: ?- Discharge patient to home (with ? escort). ? - Advance diet as tolerated. ? - Follow-up pathology results to ? determine interval of future polyp ? surveillance colonoscopy. ? Rafita Hogan MD 12/03/2015 10:51 AM Number of Addenda: 0 Note Initiated On: 12/03/2015 10:03 AM Specimen (Source) Anatomical Collection Method Collection Time Re ceived Time Location / / Volume Laterality 12/03/2015 10:03 AM EDT Elsa Dai PUBLIC RELATIONS GENERAL SURGICAL ORDERABLES Performing Organization Address City/State/ZIP Code Phon e Number [facility] documented in this encounter Visit Diagnoses Not on filedocumented in this encounter Active and Recently Administered Medications Times are shown in EDT. PRN Medication Order 12/01/2015 12/02/2015 12/03/2015 fentaNYL 50 mcg/mL multi-dose injection (CANCELED) 1028 (Given - Provider: Gabriel Pelletier RN - Comment: Start moderate sedation)1031 (Given - Provider: Gabriel Pelletier RN - Comment: sleepy but awake with eyes open) ONCE PRN, Starting Cassandra 12/03/15 at 1028, U ntil Cassandra 12/03/15 at 1131, Intra-Operative (Intra-Procedure), Routine 1034 (Given - Provider: Gabriel Pelletier RN - Comment: aroused by start of exam with startle and eyes open) midazolam (PF) (VERSED) 1 mg/mL multi-dose injection (CANCELED) 1028 (Given - Provider: Gabriel Pelletier RN - Comment: see fentanyl same time)1031 (Given - Provider: Gabriel Pelletier RN - Comment: see fentanyl same time)1034 (Given - Provider: Gabriel Pelletier RN - Comment: see fentanyl same time) ONCE PRN, Starting Cassandra 12/03/15 at 1028, U ntil Cassandra 12/03/15 at 1131, Intra-Operative (Intra-Procedure), Routine documented in this encounter Care Teams Shredding Machine Operator Relationship Specialty Start Date End Date Elsa Dai APRN PCP - General Family Medicine 09/16/15 12/11/16 [facility] [place] [address] documented as of this encounter
--- OUTSIDE RECORDS SUMMARY | 2022-02-14 00:02 | XMS_ITS | Encounter Summary ---
:1965 Author Organization [facility] [place] [address] Care Team Providers Name Role Phone Mirella Lawrence APRN Primary Care Provider [phone] Encounter Details Date Type Department Care Team Description 06/15/2012 Hospital Encounter Radiology Library at [facility] Rg, [place] [address] Social History Tobacco Use Types Packs/Day Years Used Date Never Assessed Sex Assigned at Date Recorded Not on file documented as of this encounter Plan of Treatment Not on filedocumented as of this encounter Procedures Procedure Name Priority Date/Time Associated Diagnosis Comme nts FILM LIBRARY Routine 06/15/2012 12:00 AM Pain Results for this STORAGE ONLY MAMMO EST procedure are in the results section. documented in this encounter Results Film Library- Storage only Mammo (06/15/2012 12:00 AM EST) Specimen (Source) Anatomical Location Collection Method / Collectio n Time Received Time / Laterality Volume Narrative [facility] - 09/25/2015 6:17 AM EST See PACS for result report. Dr Kb Diaz IMG FILM LIBRARY ORDERABLES Performing Organization Address City/State/ZIP Code Phon e Number [place], [place] documented in this encounter Visit Diagnoses Diagnosis Pain Generalized pain documented in this encounter Care Teams Nurse Staff Industrial Relationship Specialty Start Date End Date Mirella Lawrence APRN PCP - General 06/22/10 09/14/15 [address] [place] [address] documented as of this encounter
--- OUTSIDE RECORDS SUMMARY | 2022-02-14 00:02 | XMS_ITS | Encounter Summary ---
:1965 [place] [address] Care Team Providers Name Role Phone Elsa Dai APRN Primary Care Provider Encounter Details Date Type Department Care Team Description 09/28/2015 External Results Radiology Library at [facility] Provider, [place] [address] Social History Tobacco Use Types Packs/Day Years Used Date Never Assessed Sex Assigned at Date Recorded Not on file documented as of this encounter Plan of Treatment Not on filedocumented as of this encounter Procedures Procedure Name Priority Date/Time Associated Diagnosis Comme nts MAMMOGRAM SCAN Routine 2014 MAMMOGRAM SCAN Routine 07/02/2013 MAMMOGRAM SCAN Routine 06/15/2012 MAMMOGRAM SCAN Routine 08/10/2010 MAMMOGRAM SCAN Routine 07/02/2009 documented in this encounter Results Scan Doc: Mammogram (2014) Anatomical Region Laterality Modality Other Narrative This result has an attachment that is no t available. Scanning Provider MEDIA MGR SCAN EXT ORDR/RSLT Scan Doc: Mammogram (07/02/2013) Anatomical Region Laterality Modality Other Narrative This result has an attachment that is no t available. Scanning Provider MEDIA MGR SCAN EXT ORDR/RSLT Scan Doc: Mammogram (06/15/2012) Anatomical Region Laterality Modality Other Narrative This result has an attachment that is no t available. Scanning Provider MEDIA MGR SCAN EXT ORDR/RSLT Scan Doc: Mammogram (08/10/2010) Anatomical Region Laterality Modality Other Narrative This result has an attachment that is no t available. Scanning Provider MEDIA MGR SCAN EXT ORDR/RSLT Scan Doc: Mammogram (07/02/2009) Anatomical Region Laterality Modality Other Narrative This result has an attachment that is no t available. Scanning Provider MEDIA MGR SCAN EXT ORDR/RSLT documented in this encounter Visit Diagnoses Not on filedocumented in this encounter Care Teams Certified Nursing Assistant Instructor Relationship Specialty Start Date End Date Elsa Dai APRN PCP - General Family Medicine 09/16/15 12/11/16 [address] [place] [address] documented as of this encounter
--- OUTSIDE RECORDS SUMMARY | 2022-02-14 00:02 | XMS_ITS | Encounter Summary ---
:1965 Author Organization [facility] [place] [address] Care Team Providers Name Role Phone Elsa Dai APRN Primary Care Provider Reason for Visit Auth/Cert Specialty Diagnoses / Procedures Referred By Contact Refer red To Contact Diagnoses Encounter for screening for malignant neoplasm of colon Screening Procedures PRO COLONOSCOPY, DIAGNOSTIC COLONOSCOPY, DIAGNOSTIC Referral ID Status Reason Start Date Expiration Date Visits Requ ested Visits Authorized [id number] 1 1 Encounter Details Date Type Department Care Team Description 12/03/2015 Surgery G[place]ology at [facility] Rafita Hogan, COLONOSCOPY, [facility] Peyman [place] [address] [facility] [phone] GASTROENTEROLOGY DEPT [place], [place] [address] Social History Tobacco Use Types [...] Sign Reading Time Taken Comments Blood Pressure 126/79 12/03/2015 10:30 AM EDT Pulse 71 12/03/2015 10:30 AM EDT Temperature - - Respiratory Rate 18 12/03/2015 10:30 AM EDT Oxygen Saturation 97% 12/03/2015 10:30 AM EDT Inhaled Oxygen Concentration - - Weight - - Height - - Body Mass Index - - documented in this encounter Discharge Instructions AttachmentsThe following attachments cannot be sent through Care Everywhere. COLONOSCOPY : POST-OP (NEW ZEALANDER)documented in this encounter Medications at Time of [...] Surgical Pathology Report (12/03/2015 11:13 AM EDT) [facility] Method Time Signature Surgical [id number] ? Location: ; [facility]; [facility] Report The signing pathologist has (i) [...] MD PATHOLOGY/CYTOLOGY ORDERABLE S Performing Organization Address City/[facility]/ZIP Code Phon e Number [address] Specimen to Pathology (surgical or derm) (12/03/2015 11:13 AM EDT) Specimen Anatomical Collection Method Collection Time Receive d Time (Source) Location / / Volume Laterality AP Specimen 12/03/2015 11:13 12/03/2015 AM EDT 11:13 AM EDT Narrative [facility] - 12/03/2015 11:13 AM EDT Specimen requisition ordered. ??Separate Pathology report to follow Rafita Hogan MD PATHOLOGY/CYTOLOGY ORDERABLE S Performing Organization Address City/[facility]/[place] [address] COLONOSCOPY (12/03/2015 10:03 AM EDT) [facility] gist Method Time Signature COLONOSCOPY [facility] Endoscopy Patient Name: Sachi Ramirez ? Procedure Date: 12/03/2015 10:03 AM ? Date of : 1965 ? Age: 50 ? Order #: [id number] ? Procedure: ? Colonoscopy Indications: ? Screening for colorectal malignant ? neoplasm Providers: ? Rafita Hogan MD, Gabriel Ruby ? LAZARO Pelletier, Rhnia Siu MD: ?Elsa Dai MD Medicines: ? [...] Laterality 12/03/2015 10:03 AM EDT Elsa Dai STEMMING MACHINE OPERATOR GENERAL SURGICAL ORDERABLES Performing Organization Address City/State/ZIP Code Phon e Number [place] documented in this encounter Visit Diagnoses Not on filedocumented in this encounter Administered Medications Inactive Administered Medications - up to 3 most recent administrations Medication Order MAR Action Action Date Dose Rate Site fentaNYL 50 mcg/mL Given 12/03/2015 10:34 AM EDT 50 mcg Right Arm multi-dose injection ONCE PRN, Starting on Cassandra 12/03/15 at 1028, Until Cassandra 12/03/15 at 1131, Intra-Operative (Intra-Procedure), Routine Given 12/03/2015 10:31 AM EDT 50 mcg Righ t Arm Given 12/03/2015 10:28 AM EDT 50 mcg Righ t Arm midazolam (PF) (VERSED) 1 mg/mL Given 12/03/2015 10:34 AM EDT 1 mg Right Arm multi-dose injection ONCE PRN, Starting on Cassandra 16 at 1028, Until Cassandra 16 at 1131, Intra-Operative (Intra-Procedure), Routine Given 12/03/2015 10:31 AM EDT 1 mg Righ t Arm Given 12/03/2015 10:28 AM EDT 1 mg Righ t Arm documented in this encounter Active and Recently Administered Medications Times are shown in EDT. PRN Medication Order 12/01/2015 12/02/2015 12/03/2015 fentaNYL 50 mcg/mL multi-dose injection (CANCELED) 1028 (Given - Provider: Gabriel Pelletier RN - Comment: Start moderate sedation)1031 (Given - Provider: Gabriel Pelletier RN - Comment: sleepy but awake with eyes open) ONCE PRN, Starting Cassandra 16 at 1028, U ntil Cassandra 16 at 1131, Intra-Operative (Intra-Procedure), Routine 1034 (Given [...] Cassandra 12/03/15 at 1028, U ntil Cassandra 16 at 1131, Intra-Operative (Intra-Procedure), Routine documented in this encounter Care Teams Industrial Training Specialist Relationship Specialty Start Date End Date Elsa Dai APRN PCP - General Family Medicine 09/16/15 12/11/16 [place] [address] documented as of this encounter
--- OUTSIDE RECORDS SUMMARY | 2022-02-14 00:02 | XMS_ITS | Encounter Summary ---
:1965 Author Organization [facility] [place] [address] Care Team Providers Name Role Phone Mirella Lawrence APRN Primary Care Provider [phone] Encounter Details Date Type Department Care Team Description 2014 Hospital Encounter Radiology Library at [facility] Rg, [place] [address] Social History Tobacco Use Types Packs/Day Years Used Date Never Assessed Sex Assigned at Date Recorded Not on file documented as of this encounter Plan of Treatment Not on filedocumented as of this encounter Procedures Procedure Name Priority Date/Time Associated Diagnosis Comme nts FILM LIBRARY Routine 2014 12:00 AM Pain Results for this STORAGE ONLY MAMMO EST procedure are in the results section. documented in this encounter Results Film Library- Storage only Mammo (2014 12:00 AM EST) Specimen (Source) Anatomical Location Collection Method / Collectio n Time Received Time / Laterality Volume Narrative [facility] - 09/25/2015 6:11 AM EST See PACS for result report. Dr Kb Diaz IMG FILM LIBRARY ORDERABLES Performing Organization Address City/State/ZIP Code Phon e Number [place], [place] documented in this encounter Visit Diagnoses Diagnosis Pain Generalized pain documented in this encounter Care Teams Can Patcher Relationship Specialty Start Date End Date Mirella Lawrence APRN PCP - General 06/22/10 09/14/15 [address] [place] [address] documented as of this encounter
--- OUTSIDE RECORDS SUMMARY | 2022-02-14 00:02 | XMS_ITS | Encounter Summary ---
:1965 [place] [address] Care Team Providers Name Role Phone Mirella Lawrence APRN Primary Care Provider [phone] Encounter Details Date Type Department Care Team Description 2010 Follow-Up Plastic Surgery at [facility] Geovanna Ponce APRN [facility] [place] [address] PLASTIC SURGERY [phone] [place] [address] (Wo rk) Social History Tobacco Use Types Packs/Day Years Used Date Never Assessed Sex Assigned at Date Recorded Not on file documented as of this encounter Plan of Treatment Not on filedocumented as of this encounter Visit Diagnoses Not on filedocumented in this encounter Care Teams Silk Soaker Relationship Specialty Start Date End Date Mirella Lawrence APRN PCP - General 06/22/10 09/14/15 [address] [place] [address] documented as of this encounter
--- OUTSIDE RECORDS SUMMARY | 2022-02-14 00:03 | XMS_ITS | Encounter Summary ---
:1965 Author Organization [facility] Address [address] [place] [address] Care Team Providers Name Role Phone Natacha Wu APRN Primary Care Provider Encounter Details Date Type Department Care Team Description 09/07/2020 Lab Requisition [facility] Outr Resulting Lab, Pathology & Laboratory Provider [facility] [address], [place] [address] Social History Tobacco Use Types Packs/Day Years Used Date Never Smoker Alcohol Use Standard Drinks/Week Comments No 0 (1 standard drink = 0.6 oz pure alcoho l) Sex Assigned at Date Recorded Not on file documented as of this encounter Plan of Treatment Not on filedocumented as of this encounter Procedures Procedure Name Priority Date/Time Associated Diagnosis Comme nts HEPATITIS C AB W Routine 09/07/2020 9:50 EST Resu lts for this REFLEX TO HCV RNA procedure are in BY PCR the results section. documented in this encounter Results HEPATITIS C AB W REFLEX TO HCV RNA BY PCR (09/07/2020 9:50 EST) Pathologist Sig nature Hep C Antibody Negative Negative [facility] Specimen Blood - Venous blood (substance) Performing Organization Address City/State/ZIP Code Phon e Number [facility] [address] [place] [address] SERVICES documented in this encounter Visit Diagnoses Not on filedocumented in this encounter Care Teams Fruit Buying Grader Relationship Specialty Start Date End Date Natacha Wu APRN PCP - General 01/10/[address] [place] [address] documented as of this encounter
--- OUTSIDE RECORDS SUMMARY | 2022-02-14 00:03 | XMS_ITS | Encounter Summary ---
:1965 Author Organization [facility] Address [address] [place] [address] Care Team Providers Name Role Phone Natacha Wu APRN Primary Care Provider Encounter Details Date Type Department Care Team Description 09/07/2020 Lab Requisition [facility] Outr Resulting Lab, Pathology & Laboratory Provider [facility] [address] [place] [id number] Social History Tobacco Use Types Packs/Day Years Used Date Never Smoker Alcohol Use Standard Drinks/Week Comments No 0 (1 standard drink = 0.6 oz pure alcoho l) Sex Assigned at Date Recorded Not on file documented as of this encounter Plan of Treatment Not on filedocumented as of this encounter Procedures Procedure Name Priority Date/Time Associated Comments Diagnosis HIV 1/2 ANTIGEN AND Routine 09/07/2020 9:50 EST R esults for this ANTIBODY, 4TH procedure are in GENERATION the results section. documented in this encounter Results HIV 1/2 ANTIGEN AND ANTIBODY, 4TH GENERATION (09/07/2020 9:50 EST) HIV 1 and 2 Negative Negative [facility] Antibody/p24 Comment: LABORATORY Antigen, 4th If acute HIV-1 infection is suspected in a high risk ??patient, submit plasma specimen for HIV-1 RNA quantitation test. SERV ICES Generation Fourth Generation assay performed on the Siemens Wikinvesta ur. Specimen Blood - Venous blood (substance) Performing Organization Address City/State/ZIP Code Phon e Number [facility] LABOR[facility] [address] [place] [address] SERVICES documented in this encounter Visit Diagnoses Not on filedocumented in this encounter Care Teams Fancy Needleworker Relationship Specialty Start Date End Date Natacha Wu APRN PCP - General 01/10/18 [address] [place] [address] documented as of this encounter
--- OUTSIDE RECORDS SUMMARY | 2022-02-14 00:03 | XMS_ITS | Encounter Summary ---
:1965 Author Organization [facility] Address [address] [place] [address] Care Team Providers Name Role Phone Mirella Lawrence Galina ARCHITECTURAL INTERN Primary Care Provider Encounter Details Date Type Department Care Team Description 01/02/2018 Results Only [facility]- Natacha Jansen APRN [phone] [address] [place], [place] [phone] (Wo rk) Social History Tobacco Use Types Packs/Day Years Used Date Never Smoker Alcohol Use Standard Drinks/Week Comments No 0 (1 standard drink = 0.6 oz pure alcoho l) Sex Assigned at Date Recorded Not on file documented as of this encounter Plan of Treatment Not on filedocumented as of this encounter Procedures Procedure Name Priority Date/Time Associated Diagnosis Comme nts PAP TEST- RESULT Routine 01/02/2018 0:00 EDT Resu lts for this ONLY procedure are i n the results section. documented in this encounter Results PAP TEST- RESULT ONLY (01/02/2018 0:00 EDT) Pathology Report: CYTOPATHOLOGY REPORT [facility] Reports generated via electronic interface contain chrissy ginal data; SERVICES however they are lacking the format of the original re port. Caution should be taken when reading/interpreting unfo rmatted reports. Name: ? RONALD BAUMANN ? Accession #: ? [id number] ? : ? 1965 (Age: 52) ??F ?Collect Date: ? 2017 ? Location: ? [facility] ? Receive Date: ? 8 ? Provider: NATACHA LOMELI ARCHITECTURAL INTERN Copy to: ? Final Report SPECIMEN ADEQUACY ? Satisfactory for Evaluation - transformation zone component present GENERAL CATEGORIZATION ? Negative for Intraepithelial Lesion or Malignan cy INTERPRETATION ? Shift in alo present suggestive of bacterial vaginosis. Specimen/Source: ??Pap Test, Cervix, ThinPrep Imaging System with manual evaluation Document reviewed and electronically signed by: ? MACO VILLALOBOS MD ? Report ??Date: 01/09/2018 11:10 HPV with Pap Test ? Date Ordered: ? 01/09/2018 ? Status: ?? Signed Out ?Date Complete: ? 01/10/2018 ? By: ??Sy stem Interface ? Date Reported: ? 01/10/2018 ? Interpretation RESULT: Negative for HPV. No E6 or E7 mRNA is detected from HPV types 16,18,31,3 3,35, 39,45,51,52,56,58,59,66, and 68 by manager investigations media lele amplification. Comments Document reviewed and electronically signed by: ? System Interface ? Report date: 01/10/2018 By the signature above, the attending physician certif ies that he/she has personally conducted a gross and/or microscopic examin ation of the described specimens and rendered or confirmed the above diagnosi s. End of Report Specimen Performing Organization Address City/State/ZIP Code Phon e Number [facility] [address] [place] [address] SERVICES documented in this encounter Visit Diagnoses Not on filedocumented in this encounter Care Teams Geographic Information Systems Engineer Relationship Specialty Start Date End Date Mirella Lawrence APRN PCP - General 08/18/09 01/09/18 [address] [place] [phone] documented as of this encounter
--- OUTSIDE RECORDS SUMMARY | 2022-02-14 00:03 | XMS_ITS | Encounter Summary ---
:1965 Author Organization [facility] Address [address] [place] [address] Care Team Providers Name Role Phone Mirella Lawrence APRN Primary Care Provider [phone] Encounter Details Date Type Department Care Team Description 08/13/[address] [facility] Servando Chavez MD Dermatology - [facility] [address] [address] [address], [place], [place] [address] (Wo rk) Social History Tobacco Use Types Packs/Day Years Used Date Never Assessed Sex Assigned at Date Recorded Not on file documented as of this encounter Plan of Treatment Not on filedocumented as of this encounter Visit Diagnoses Not on filedocumented in this encounter Care Teams Customer Retention Specialist Relationship Specialty Start Date End Date Mirella Lawrence APRN PCP - General 08/18/09 01/09/18 [address] [place] [phone] documented as of this encounter
--- OUTSIDE RECORDS SUMMARY | 2022-02-14 00:03 | XMS_ITS | Encounter Summary ---
:1965 Author Organization [facility] Address [address] [place] [address] Care Team Providers Name Role Phone Unavailable Primary Care Provider Unavailable Encounter Details Date Type Department Care Team Description 03/12/2009 Orders Only [facility] James Sarabia am, MD Services - [address] [address] Social History Tobacco Use Types Packs/Day Years Used Date Never Assessed Sex Assigned at Date Recorded Not on file documented as of this encounter Plan of Treatment Not on filedocumented as of this encounter Procedures Procedure Name Priority Date/Time Associated Comments Diagnosis HPV DETECTION, HIGH Routine 03/12/2009 13:56 Resu lts for this RISK TYPES EDT procedure are i n the results section. CYTOPATHOLOGY Routine 03/12/2009 0:00 Results for this EDT procedure are i n the results section. documented in this encounter Results HUMAN PAPILLOMA VIRUS DNA TEST (03/12/2009 13:56 EDT) Specimen Description Cervix, ThinPrep [facility] vial Result Negative for HPV [facility] types 16, 18, 31, 33, 35, 39, 45, 51, 52, 56, 58, 59, and 68. Report Status Final [facility] 03/26/2009 Specimen Performing Organization Address City/State/ZIP Code Phon e Number [facility] [address] [place] [address] SERVICES [facility] [address] [place] [address] CYTOPATHOLOGY (03/12/2009 0:00 EDT) Pathology Report: CYTOPATHOLOGY REPORT ? [facility] Reports generated via electr onic interface contain original data; ? however they are lacking the format of the original report. ? Caution should be taken when reading/interpreting unformatted reports. ? Name: ? RONALD BAUMANN ? Accession #: ? [id number] ? : ? 1965 (Age: 43) ??F ?Collect Date: ? 03/12/2009 ? Location: ? [facility] ? Receive Date: ? 03/16/2009 ? Provider: ?CONNOR B SARABIA MD ? Copy to: ? Specimen/Source: ? Pap Test, Cervix/Endocervix, ThinPrep Imaging System ? with manual evaluation ? Last Menstrual Period: ? Other: ? HPVDX - HPV testing requeste d regardless of diagnosis on current ThinPrep Pap ?? test. ? SPECIMEN ADEQUACY ? Unsatisfactory for Ev aluation, ? - insufficient numbers of sq uamous epithelial cells (less than 10% of expected ?? cellularity) ? - sample preparation comprom ised by excessive blood ? GENERAL CATEGORIZATION ? Specimen processed an d examined, but unsatisfactory for evaluation of ? epithelial abnormality. ? Recommend repeat Pap test or further follow up, as clinically indicated. ? Document reviewed and electr onically signed by: ? Cata Luong, SCT( ASCP) ? Report Date: ??08/24/ 2009 08:26 ? End of Report ? Specimen Performing Organization Address City/State/ZIP Code Phon e Number [facility] [address] [place] [address] SERVICES [facility] [address] [place] [address] documented in this encounter Visit Diagnoses Not on filedocumented in this encounter
--- OUTSIDE RECORDS SUMMARY | 2022-02-14 00:03 | XMS_ITS | Encounter Summary ---
:1965 Author Organization [facility] Address [address] [place] [address] Care Team Providers Name Role Phone Mirella Lawrence APRN Primary Care Provider [phone] Encounter Details Date Type Department Care Team Description 01/02/2018 Hospital Encounter [facility]- Marii Unknown, Provider, [facility] [address] [facility] [phone] [place] [address] (Work) [phone] Social History Tobacco Use Types Packs/Day Years Used Date Never Smoker Alcohol Use Standard Drinks/Week Comments No 0 (1 standard drink = 0.6 oz pure alcoho l) Sex Assigned at Date Recorded Not on file documented as of this encounter Medications at Time of Discharge Medication Sig Dispensed Refills Start Date End Date IBUPROFEN ORAL Take by mouth as needed. 0 011 documented as of this encounter Discharge Disposition Disposition Code Departure Means Destination Home or Self Alf documented in this encounter Plan of Treatment Not on filedocumented as of this encounter Visit Diagnoses Not on filedocumented in this encounter Care Teams Consulting Sme Relationship Specialty Start Date End Date Mirella Lawrence APRN PCP - General 08/18/09 01/09/18 [address] [place] [phone] documented as of this encounter
--- OUTSIDE RECORDS SUMMARY | 2022-02-14 00:03 | XMS_ITS | Encounter Summary ---
:1965 Author Organization [facility] Address [address] [place] [address] Care Team Providers Name Role Phone Mirella Lawrence Galina DOCKWORKER Primary Care Provider Encounter Details Date Type Department Care Team Description 09/14/2015 Results Only [place]- Natacha Jansen APRN [phone] [address] [place], [place] [phone] (Wo rk) Social History Tobacco Use Types [...] Diagnosis Comme nts PAP TEST- RESULT Routine 09/14/2015 0:00 EST Resu lts for this ONLY procedure are i n the results section. documented in this encounter Results PAP TEST- RESULT ONLY (09/14/2015 0:00 EST) Pathology Report: CYTOPATHOLOGY REPORT [facility] Reports generated via electronic interface contain chrissy ginal data; SERVICES however they are lacking the format of the original re port. Caution should be taken when reading/interpreting unfo rmatted reports. Name: ? RONALD BAUMANN ? Accession #: ? [id number] ? : ? 1965 (Age: 50) ??F ?Collect Date: ? 09/14/2015 ? Location: ? [facility] ? Receive Date: ? 09/16/19 16 ? Provider: NATACHA LOMELI DOCKWORKER Copy to: ? Final Report SPECIMEN ADEQUACY ? Satisfactory for Evaluation - transformation zone component present GENERAL CATEGORIZATION ? Negative for Intraepithelial Lesion or Malignan cy INTERPRETATION ? Shift in alo present suggestive of bacterial vaginosis. Specimen/Source: ??Pap Test, Cervix/Endocervix, ThinPr ep Imaging System with manual evaluation Document reviewed and electronically signed by: ? Dorita Guzman, CT(ASCP) ? Report ??Date: 09/23/2015 12:12 HPV with Pap Test ? Date Ordered: ? 09/23/2015 ? Status: ?? Signed Out ?Date Complete: ? 09/25/2015 ? By: ??Sy stem Interface ? Date Reported: ? 09/25/2015 ? Interpretation RESULT: Positive for high or intermediate risk HPV. E6 OR E7 mRNA from one or more types of HPV types 16,1 8,31, 33,35,39,45,51,52,56,58,59,66, and 68 is detected by racecar driver mediated amplification. High and intermediate risk HPV types are associated wi th most squamous intraepithelial lesions and cervical can cers. Comments Document reviewed and electronically signed by: ? System Interface ? Report date: 09/25/2015 By the signature above, the attending physician certif ies that he/she has personally conducted a gross and/or microscopic examin ation of the described specimens and rendered or confirmed the above diagnosi s. End of Report Specimen Performing Organization Address [facility]/State/ZIP Code Phon e Number [facility] [address] [place] [address] SERVICES documented in this encounter Visit Diagnoses Not on filedocumented in this encounter Care Teams Director Of Marketing Operations Relationship Specialty Start Date End Date Mirella Lawrence APRN PCP - General 08/18/09 01/09/18 [address] [place] [phone] documented as of this encounter
--- OUTSIDE RECORDS SUMMARY | 2022-02-14 00:03 | XMS_ITS | Encounter Summary ---
:1965 Author Organization [facility] Address [address] [place] [address] Care Team Providers Name Role Phone Mirella Lawrence JUAN RAMON Primary Care Provider [phone] Encounter Details Date Type Department Care Team Description 05/19/2011 Results Only [facility] James Sarabia am, MD Services - Marii All en [address] [address] Social History Tobacco Use Types Packs/Day Years Used Date Never Smoker Alcohol Use Standard Drinks/Week Comments No 0 (1 standard drink = 0.6 oz pure alcoho l) Sex Assigned at Date Recorded Not on file documented as of this encounter Plan of Treatment Not on filedocumented as of this encounter Procedures Procedure Name Priority Date/Time Associated Diagnosis Comme nts PAP TEST- RESULT Routine 05/19/2011 0:00 EDT Resu lts for this ONLY procedure are i n the results section. documented in this encounter Results PAP TEST- RESULT ONLY (05/19/2011 0:00 EDT) Pathology Report: CYTOPATHOLOGY REPORT [facility] Reports generated via electronic interface contain chrissy ginal data; however they are lacking the format of the original re port. Caution should be taken when reading/interpreting unfo rmatted reports. Name: ? RONALD BAUMANN ? Accession #: ? [id number] ? : ? 1965 (Age: 45) ??F ?Collect Da te: ? 05/19/2011 ? Location: ? [facility] ? Receive Date: ? 011 ? Provider: CONNOR SARABIA MD Copy to: ? Final Report SPECIMEN ADEQUACY ? Satisfactory for Evaluation - transformation zone component present GENERAL CATEGORIZATION ? Negative for Intraepithelial Lesion or Malignan cy INTERPRETATION ? Reactive cellular nahed nges associated with inflammation present (includes repair). Specimen/Source: ??Pap Test, Cervix/Endocervix, ThinPr ep Imaging System with manual evaluation Document reviewed and electronically signed by: ? VENTURA BARRIOS MD ? Report ??Date: 05/28/2011 15:54 HPV with Pap Test ? Date Ordered: ? 06/01/2011 ? Status: ?? Signed Out ?Date Complete: ? 06/02/2011 ? By: ??S ystem Interface ? Date Reported: ? 06/02/2011 ? Interpretation RESULT: Negative for HPV types 16, 18, 31, 33, 35, 39, 45, 51, 52, 56, 58, 59, and 68. Comments Document reviewed and electronically signed by: ? System Interface ? Report date: 06/02/2011 By the signature above, the attending physician certif ies that he/she has personally conducted a gross and/or microscopic examin ation of the described specimens and rendered or confirmed the above diagnosi s. End of Report Specimen Performing Organization Address City/State/ZIP Code Phon e Number [facility] [address] [place] [address] SERVICES [facility] [address] [place] [address] documented in this encounter Visit Diagnoses Not on filedocumented in this encounter Care Teams Seconds Grader Relationship Specialty Start Date End Date Mirella Lawrence, JUAN RAMON PCP - General 08/18/09 01/09/18 [address] [place] [phone] documented as of this encounter
--- OUTSIDE RECORDS SUMMARY | 2022-02-14 00:03 | XMS_ITS | Encounter Summary ---
:1965 Author Organization [facility] Address [address] [place] [address] Care Team Providers Name Role Phone Mirella Lawrence JUAN RAMON Primary Care Provider [phone] Reason for Visit Reason Comments Annual Exam Encounter Details Date Type Department Care Team Description 08/17/2010 Office Visit [facility] Kelly Toussaint Dysplast ic nevi (Primary Dx); Dermatology - James Evans MD Congenital nevus [phone] [place] [address] [place], [address] [place] [address] (Wo rk) Social History Tobacco Use Types Packs/Day Years Used Date Never Smoker Alcohol Use Standard Drinks/Week Comments No 0 (1 standard drink = 0.6 oz pure alcoho l) Sex Assigned at Date Recorded Not on file documented as of this encounter Progress Notes Kelly Toussaint MD - 08/18/2010 1522 EST DIVISION OF DERMATOLOGY PROGRESS/FOLLOWUP NOTE - 08/17/2010 PROBLEM: 1. Congenital nevus. 2. Nevi. SUBJECTIVE: This is a followup visit for this 45-year-old white female, last seen in dermatology clinic on 08/19/2009. She returns today for general skin exam. She has a history of a congenital nevus onher left gagnon, which we looked at last year, as well as the many nevi and lentigines, none of which she has noticed have changed at all. Since her last visit, she has had breast reduction surgery and she is healing well from that. She has not had any interim health status change since her last visit. She feels well today and has no other constitution checked. OBJECTIVE: At healthy-appearing, middle-aged white female in no acute distress, appropriate affect and demeanor. Skin exam: Scalp, face, neck, back, chest, abdomen, intertriginous areas and extremitiesare all examined. Scattered over her upper chest, back and arms she has numerous evenly pigmented 6 to 8 mm barakat macules representing chronic actinic damage and lentigines and an approximately 40 fairlyevenly pigmented 3 to 4 mm dark brown, well-demarcated nevi across her back, her legs and her abdomen. On her central lower back are her most atypical nevi, which are 2 eclipsed-type nevi measuring approximately 4 and 6 mm in diameter. On her left anterior gagnon, she has a 1.5 cm, slightly irregularly b ordered mamillated brown plaques, some of which show pink scar. This is unchanged from previous photographs. All of her lesions are unchanged from previous photographs. ASSESSMENT: 1. 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 2. Multiple benign nevi. 3. Chronic actinic damage and lentigines. PLAN: 1. Patient education. Discussed that I would continue recommended yearly skin exams. We will continue to monitor the lesion on her left gagnon as well as her other moles. Photographs and are now in her chart. 2. The importance of sunscreen use, sun avoidance and self-examination was discussed. 3. Follow up here in 1 year, or sooner should she note any new lesions of concern. Electronically Signed by Kelly Toussaint MD 08/18/2010 15:22 Kelly Toussaint MD - Kelly Toussaint MD - SAMIRA Job ID: SM Doc ID: [id number] Ext Doc ID: [id number] cc: Mirella Lawrence APRN Kelly Covington MD - 08/17/2010 1223 EST This office note has been dictated. KELLY TOUSSAINT MD 08/17/2010 12:23 fisheries technical officer Tammy Barrera - 08/17/2010 1109 EST Images from the original note were not included. A complete 12 point review of systems was obtained and reviewed. All systems are negative Signature: Tammy Siegel 08/17/2010 11:09 Photos from 08/19/09 Photos reviewed KELLY TOUSSAINT MD 08/17/2010 12:24 fisheries technical officer documented in this encounter Plan of Treatment Not on filedocumented as of this encounter Visit Diagnoses Diagnosis Dysplastic nevi - Primary Benign neoplasm of skin, site unspecifie d Congenital nevus Benign neoplasm of skin, site unspecifie d documented in this encounter Historical Medications This list may reflect changes made after this encounter. Medication Sig Dispensed Refills Start Date End Date IBUPROFEN ORAL Take by mouth as needed. 0 011 added in this encounter Care Teams Pre Kindergarten Teacher Relationship Specialty Start Date End Date Mirella Lawrence, MODELING INSTRUCTOR PCP - General 08/18/09 01/09/18 [address] [place] [address] documented as of this encounter
== END ==
PROVIDERS: PCP Nurse Practitioner Family; Visit Provider Physician Assistant
DX: Z12.31 Encounter for screening mammogram for malignant neoplasm of breast (principal)
CPT/HCPCS: 77063; 77067

== ENCOUNTER 2022-11-02 18:15 | Outpatient (REF) | payer BC, SELFPAY ==
--- NOTE | 2022-11-02 15:40 | PAPFT_PTH ---
PATIENT: Sachi Ramirez LOC: [facility] U#:[id number] AGE/SX: 57/F ROOM: RE11/02/[address]: Michael Murdock : 1965 BED: DIS: 11/02/2022 SPEC #: [id number] RECD: 11/03/22 13:03 STATUS: KACEY REQ #: [id number] MICHELE: 11/02/22 15:[address]: Michael Murdock [facility] Cytology RECD BY: Sharon Rodrigues Tissues: 1 - CX/ENDOCX FOR PAP SMEARS Procedures: PAP THIN PREP/UVM Screening HPV DNA PROBE Comments: [id number]
== END 2022-11-02 18:16 | disposition home or self-care (01) ==
LOC: NCHCN 18:15
PROVIDERS: Visit Provider Physician Assistant
DX: Z12.4 Encounter for screening for malignant neoplasm of cervix (principal); Z11.51 Encounter for screening for human papillomavirus (HPV); Z00.00 Encounter for general adult medical examination without abnormal findings
CPT/HCPCS: 88142; 87624

== ENCOUNTER 2022-11-21 10:20 | Outpatient (REF) | payer BC, SELFPAY ==
[2022-11-21 14:39] LABS: HCT 36.6 % (36.0-46.0); HGB 11.4 g/dL (11.2-15.7); MCH 24.4 pg (27.0-33.0); MCHC 31.1 % (32.0-36.0); MCV 78 fL (80-95); MPV 10.2 fL (8.0-11.0); Platelet Count 261 10^3/uL (130-400); RBC 4.68 10^6/uL (3.93-5.22); RDW 15.2 % (11.7-14.6); RDW-SD 43.2 fL
[2022-11-21 15:38] LABS: Anion Gap 7.9 mmol/L (3-11); BUN 13 mg/dL (7-18); CO2 27.1 mmol/L (21.0-32.0); CREATININE 0.8 mg/dL (0.55-1.02); Calcium 9.3 mg/dL (8.5-10.1); Calculated LDL 160 mg/dL (<100); Chloride 105 mmol/L (98-107); Cholesterol 237 mg/dL (<200); Estimated GFR 85.89 (mL/min/1.73m2); Glucose 97 mg/dL (74-106); HDL Cholesterol 56 mg/dL (40-60); Potassium 4.4 mmol/L (3.5-5.1); Sodium 140 mmol/L (136-145); TSH 1.71 uIU/mL (0.36-3.74); Triglyceride 108 mg/dL (<150)
[2022-11-21 16:17] LABS: Iron 43 ug/dL (50-170)
== END 2022-11-21 10:21 | disposition home or self-care (01) ==
LOC: NCHCN 10:20
PROVIDERS: PCP Physician Assistant; Visit Provider Physician Assistant
DX: E03.9 Hypothyroidism, unspecified (principal); R73.03 Prediabetes; E78.5 Hyperlipidemia, unspecified; D64.9 Anemia, unspecified
CPT/HCPCS: 80048; 80061; 85027; 83036; 83540; 84443

== ENCOUNTER → 2023-06-13 00:09 | Outpatient (CLI) | payer BC, SELFPAY ==
--- NOTE | 2023-06-13 | DI.MAMMO_ITS ---
Exam(s) MAMMO SCREENING EXAM: MAMMO SCREENING CLINICAL HISTORY: Z12.39 Screening. TECHNIQUE: Bilateral full field digital CC and MLO mammographic images were obtained with 3D tomosyn thesis and utilizing computer aided detection (CAD). COMPARISON: Prior mammograms were reviewed. FINDINGS: There has been no significant change in the appearance and distribution of the fibroglandular tissue. Benign-appearing microcalcifications again noted. There are no new spiculated masses nor malignant appearing microcalcification groups. There is no significant architectural distortion nor skin thickening-retraction. IMPRESSION: No radiographic evidence of malignancy. BI-RADS Category 1 - Negative Breast Density - Category A - Almost entirely fatty Breast density Category C or D implies that the patient has dense breast tissue. Dense breast tissue can make it harder to find cancer on a mammogram. Dense breast tissue is also associated with an incr eased risk of breast cancer. This information about the result of the mammogram report was provided to the patient to raise their awareness. Use this report when you speak with the patient about their risks for breast cancer, which includes their family history. At that time, you may recommend additional screening tests (Ultrasoun d or MRI) as these tests may add significant information. A negative radiographic report should not delay biopsy if a dominant or clinically suspicious mass is present. Up to ten percent of cancers are not identified on mammography. A negative report may reinforce clinical impression. Adenosis and dense breasts may obscure an underlying neoplasm. False positive reports average 6 to 10%. Patient will receive a letter notifying them of these results.
== END ==
PROVIDERS: PCP Physician Assistant; Visit Provider Physician Assistant
DX: Z12.31 Encounter for screening mammogram for malignant neoplasm of breast (principal)
CPT/HCPCS: 77063; 77067

== ENCOUNTER 2023-11-27 14:18 | Outpatient (REF) | payer BC, SELFPAY ==
[2023-11-27 16:31] LABS: ALT 24 U/L (14-59); AST 14 U/L (15-37); Albumin 3.9 g/dL (3.4-5.0); Alkaline Phosphatase 91 U/L (46-116); Anion Gap 6.2 mmol/L (3-11); BUN 12 mg/dL (7-18); Bilirubin, Total 0.5 mg/dL (0.2-1.0); CO2 27.8 mmol/L (21.0-32.0); CREATININE 0.8 mg/dL (0.55-1.02); Calcium 9.4 mg/dL (8.5-10.1); Calculated LDL 134 mg/dL (<100); Chloride 106 mmol/L (98-107); Cholesterol 212 mg/dL (<200); Estimated GFR 85.35 (mL/min/1.73m2); Glucose 94 mg/dL (74-106); HDL Cholesterol 51 mg/dL (40-60); Potassium 4.2 mmol/L (3.5-5.1); Sodium 140 mmol/L (136-145); TSH 0.42 uIU/Ml (0.36-3.74); Total Protein 6.8 g/dL (6.4-8.2); Triglyceride 135 mg/dL (<150)
[2023-11-27 16:48] LABS: Hemoglobin A1C 5.9 % (<5.7)
== END 2023-11-27 14:19 | disposition home or self-care (01) ==
LOC: NCHCN 14:18
PROVIDERS: PCP Physician Assistant; Visit Provider Physician Assistant
DX: E78.5 Hyperlipidemia, unspecified (principal); R73.03 Prediabetes; E03.9 Hypothyroidism, unspecified
CPT/HCPCS: 80053; 80061; 83036; 84443

== ENCOUNTER 2024-11-27 09:11 | Outpatient (REF) | payer BC, SELFPAY ==
[2024-11-27 15:32] LABS: HCT 39.5 % (36.0-46.0); HGB 12.5 g/dL (11.2-15.7); MCH 26.2 pg (27.0-33.0); MCHC 31.6 % (32.0-36.0); MCV 83 fL (80-95); MPV 10.1 fL (8.0-11.0); Platelet Count 242 10^3/uL (130-400); RBC 4.77 10^6/uL (3.93-5.22); RDW 13.3 % (11.7-14.6); RDW-SD 39.7 fL; WBC 5.84 10^3/uL (4.4-10.8)
[2024-11-27 16:31] LABS: Calculated LDL 163 mg/dL (<100); Cholesterol 254 mg/dL (<200); HDL Cholesterol 52 mg/dL (>or=50); TSH 0.85 uIU/mL (0.36-3.74); Triglyceride 197 mg/dL (<150)
[2024-11-27 17:52] LABS: Hemoglobin A1C 5.8 % (<5.7)
== END 2024-11-27 09:12 | disposition home or self-care (01) ==
LOC: NCHCN 09:11
PROVIDERS: PCP Physician Assistant; Visit Provider Physician Assistant
DX: R73.03 Prediabetes (principal); E03.9 Hypothyroidism, unspecified; E78.5 Hyperlipidemia, unspecified
CPT/HCPCS: 80061; 85027; 83036; 84443

== ENCOUNTER 2024-12-04 00:42 | Outpatient (CLI) | payer BC, SELFPAY ==
--- NOTE | 2024-12-04 | DI.MAMMO_ITS ---
Exam(s) MAMMO SCREENING EXAM: MAMMO SCREENING CLINICAL HISTORY: SCREENING,Z12.31 TECHNIQUE: Mammograms were interpreted according to the usual protocol including computer analysis w [email or web address] CAD system, tomosynthesis and C-view imaging. COMPARISON: 2015 through 2022 FINDINGS: The breasts are composed of mainly fatty density , Breast Density category A. No suspicious masses or suspicious microcalcifications are seen. No skin thickening or abnormal axillary lymph nodes are seen. There has been no significant change from prior exams. IMPRESSION: BI-RADS Category 1, Negative mammogram Yearly screening mammography is recommended. Breast Density - Category A, fatty density. Breast density Category C or D implies that the patient has dense breast tissue. Dense breast tissue can make it harder to find cancer on a mammogram. Dense breast tissue is also associated with an incr eased risk of breast cancer. This information about the result of the mammogram report was provided to the patient to raise their awareness. Use this report when you speak with the patient about their risks for breast cancer, which includes their family history. At that time, you may recommend additional screening tests (Ultrasoun d or MRI) as these tests may add significant information. A negative radiographic report should not delay biopsy if a dominant or clinically suspicious mass is present. Up to ten percent of cancers are not identified on mammography. A negative report may reinforce clinical impression. Adenosis and dense breasts may obscure an underlying neoplasm. False positive reports average 6 to 10%. Patient will receive a letter notifying them of these results.
== END 2024-12-04 01:02 ==
LOC: DI 00:42
PROVIDERS: PCP Physician Assistant; Visit Provider Physician Assistant
DX: Z12.31 Encounter for screening mammogram for malignant neoplasm of breast (principal); R92.313 Mammographic fatty tissue density, bilateral breasts
CPT/HCPCS: 77063; 77067